=== PATIENT | male | born 1935 | race Caucasian/White ===

== ENCOUNTER 2018-01-10 01:41 | Observation (INO) ==
--- NOTE | 2018-01-10 02:06 | DR.CP ---
HPI Time Seen Time Seen by Provider: 01/10/18 02:03 PCP Primary Care Physician: KILEY HPI Comment HPI Comment: PATIENT GETS MUSCLE PSIN ALL THE TIME. PAIN TONIGHT DIFFERENT. PATIENT TOOK TWO 81MG ASA. PAIN 8/10. Complaint Chief Complaint Doctor Comments: CHEST PAIN TONIGHT ACCROSS CHEST ASSOCIATED WITH SOB. PAIN SIDES TIMES 2 WEEKS THAT IS ALSO WORSE. NO FEVER OR URI SYMPTOMS. Chief Complaint:: PATIENT STATED HE HAS BEEN HAVING BILATERAL SIDE PAIN X2 WEEKS BUT STARTED HAVING CHEST PAIN TONIGHT WITH SHORTNESS OF BREATH. Reviewed Nurses Notes Review: Yes Source History Provided: Patient Mode of Arrival Mode of Arrival: Ambulatory Timing Onset of Chief Complaint: 01/07/18 Came on: Suddenly Duration Duration: Constant Duration: Hours Location Location of Chest Pain: Right, Left and Chest Chest Pain Radiation Location: Back Context Onset: At rest and With light exertion Cardiac Risk Factors: Diabetes PE Risk Factors: None History of: Aspirin in last 24 hours Prehospital Care: ASA Quality Quality: Pressure like and Heavy Severity Severity: Moderate Modifying Factors Worsens: Nothing Associated Signs and Symptoms Associated Signs and Symptoms: Shortness of Breath PMH PMH Past Medical History: Yes Past Medical History: Diabetes, Dyslipidemia and Hypertension Past Medical History Comment: BLADDER CA Past Surgical History: Yes Surgical History: Cholecystectomy and Ortho Surgery Family History History of Family Medical Conditions: Yes Family Medical History: Diabetes Mellitus and Hypertension Social History Does patient currently use any type of tobacco product: No Have you used tobacco products in the last 12 months: No Type of Tobacco Use: None Does any household member use tobacco: No Alcohol Use: None Do you use any recreational Drugs:: No Lives Where: Home infectious screening In the last 2 months have you had wt loss of >10#?: NO Have you had fever, night sweats or hemotysis?: No Have you traveled outside the country in the last 6 months?: No Isolation: Standard ROS Review of Systems ENTM: No Symptoms Reported Respiratoy: Short of Breath Cardiovascular: Chest Pain Gastrointestinal/Abdominal: No Symptoms Reported Genitourinary: No Symptoms Reported Neurological: Weakness Musculoskeletal: No Symptoms Reported Integumentary: No Symptoms Reported Hematologic/Lymphatic: No Symptoms Reported Endocrine: No Symptoms Reported Psychiatric: No Symptoms Reported All Other Systems: Reviewed and Negative PE Vitals Vitals: Temperature 98.1 F Pulse Rate [Apical] 76 Pulse Rate 71 Respiratory Rate 23 Blood Pressure [Right Arm] 118/60 Blood Pressure 184/77 O2 Sat by Pulse Oximetry 95 General Limitations: No Limitations General Appearance: Alert and In No Apparent Distress Head Head Exam: Normal Inspection Eyes Eye exam: Normal Appearance, PERRL and EOMI; negative Scleral Icterus and Conjunctival Injection ENT ENT Exam: Normal Exam, Normal Oropharynx, Normal External Ear Exam, Mucous Membranes Moist and TM's Normal Bilaterally Chest Chest Inspection: Normal Inspection and Symmetric Chest Wall Rise Respiratory Respiratory Exam: Normal Lung Sounds Bilat Respiratory Exam: Bilateral: Rhonchi and Lower: Rhonchi Cardiovascular Cardiovascular Exam: Regular Rate, Normal Rhythm and Normal Heart Sounds Pulse: Normal, Radial and Femoral Edema: Normal Abdominal Exam Abdominal Exam: Normal Inspection, Normal Bowel Sounds and Soft; negative Tenderness Extremities Extremities Exam: Normal Inspection and Normal Capillary Refill Back Back Exam: Paraspinal Tenderness Neurologic Neurological Exam: Alert, Oriented X3 and CN II-XII Intact; negative Motor Sensory Deficit Psychiatric Psychiatric Exam: Normal Affect and Normal Mood Skin Skin Exam: Warm, Dry, Intact and Normal Color MDM Additional Information Additional Information Obtained From: Family Differential Diagnosis Differential Diagnosis: Angina, CHF, Gastritis, Myocardial Infarction, Pericarditis, Pleuritis, Pneumonia and Pneumothorax COURSE Treatment Treatment: SEE ORDERS. Education/Counseling Education/Counseling: Patient, Family and Education Educated On: Diagnosis and Needs for Follow Up ROR Labs Reviewed Laboratory Results Reviewed?: Yes Result Diagrams: 01/10/18 02:05 01/10/18 02:05 Laboratory: WBC 8.1 X10^3/uL (3.6-10.0) 01/10/18 02:05 RBC 4.30 X10^6/uL (4.7-6.0) L 01/10/18 02:05 Hgb 14.4 g/dL (13.5-18.0) 01/10/18 02:05 Hct 41.8 % (42.0-54.0) L 01/10/18 02:05 MCV 97.2 fL (80.0-100.0) 01/10/18 02:05 MCH 33.5 pg (27.0-34.0) 01/10/18 02:05 MCHC 34.5 g/dL (33.0-35.0) 01/10/18 02:05 RDW 11.4 % (11.6-16.5) L 01/10/18 02:05 Plt Count 129 X10^3/uL (150.0-450.0) L 01/10/18 02:05 MPV 8.7 fL (7.4-11.0) 01/10/18 02:05 Neut % (Auto) 57.1 % (42.0-75.0) 01/10/18 02:05 Lymph % (Auto) 25.6 % (21.0-51.0) 01/10/18 02:05 [place] % (Auto) 9.4 % (0.0-13.0) 01/10/18 02:05 Eos % (Auto) 7.3 % (0.9-2.9) H 01/10/18 02:05 Baso % (Auto) 0.6 % (0.2-1.0) 01/10/18 02:05 Neut # (Auto) 4.6 x10^3/uL (2.2-4.8) 01/10/18 02:05 Lymph # (Auto) 2.1 X10^3/uL (1.3-2.9) 01/10/18 02:05 [place] # (Auto) 0.8 x10^3/uL (0.3-0.8) 01/10/18 02:05 Eos # (Auto) 0.6 x10^3/uL (0.0-0.2) H 01/10/18 02:05 Baso # (Auto) 0.0 X10^3/uL (0.0-0.1) 01/10/18 02:05 Absolute Nucleated RBC 0.0 /100WBC 01/10/18 02:05 INR Target Range - 01/10/18 02:05 INR 1.17 (0.8-1.3) 01/10/18 02:05 APTT 36.2 SECONDS (22.9-36.5) 01/10/18 02:05 PTT Comment - 01/10/18 02:05 Sodium 142 mmol/L (136-145) 01/10/18 02:05 Corrected Sodium 145 mmol/L (136-145) 01/10/18 02:05 Potassium 4.3 mmol/L (3.5-5.1) 01/10/18 02:05 Chloride 106 mmol/L (98-107) 01/10/18 02:05 Carbon Dioxide 30.4 mmol/L (21-32) 01/10/18 02:05 BUN 28 mg/dL (7-18) H 01/10/18 02:05 Creatinine 1.27 mg/dL (0.70-1.30) 01/10/18 02:05 Est GFR (MDRD) Af Amer > 60 (>60) 01/10/18 02:05 Est GFR (MDRD) Non-Af 58 (>60) L 01/10/18 02:05 Glucose 211 mg/dL (65-99) H 01/10/18 02:05 Calcium 8.5 mg/dL (8.5-10.1) 01/10/18 02:05 Corrected Calcium 9.1 mg/dL (8.5-10.1) 01/10/18 02:05 Magnesium 1.7 mg/dL (1.7-2.9) 01/10/18 02:05 Total Bilirubin 0.20 mg/dL (0.2-1.0) 01/10/18 02:05 AST 38 Units/L (15-37) H 01/10/18 02:05 ALT 60 Units/L (12-78) 01/10/18 02:05 Alkaline Phosphatase 143 Units/L (46-116) H 01/10/18 02:05 Creatine Kinase 50 Units/L (39-308) 01/10/18 02:05 CK-MB (CK-2) < 1.0 ng/mL (0-4.0) 01/10/18 02:05 CK/CKMB % Calc 2.0 % (<4) 01/10/18 02:05 Troponin I < 0.02 ng/mL (0-1.5) 01/10/18 02:05 Total Protein 6.7 g/dL (6.4-8.2) 01/10/18 02:05 Albumin 3.3 g/dL (3.4-5.0) L 01/10/18 02:05 Globulin 3.4 g/dL (2.5-4.5) 01/10/18 02:05 Albumin/Globulin Ratio 1.0 Ratio (1.1-2.1) L 01/10/18 02:05 H. pylori IgG Antibody Negative (NEGATIVE) 01/10/18 02:05 XRAY XRAY Interpreted by: Radiologist XRAY Findings: REPORT DISCUSS WITH PATIENT. EKG Rate: 58 Rhythm: SB Block: LBBB Hypertrophy: None ST: Normal Diagnosis Discharge Problem: Chest pain, rule out acute myocardial infarction
[2018-01-10 02:21] LABS: BASOPHILS % (AUTO) 0.6 % (0.2-1.0); EOSINOPHILS # (AUTO) 0.6 x10^3/uL (0.0-0.2); EOSINOPHILS % (AUTO) 7.3 % (0.9-2.9); HEMATOCRIT 41.8 % (42.0-54.0); HEMOGLOBIN 14.4 g/dL (13.5-18.0); LYMPHOCYTES # (AUTO) 2.1 X10^3/uL (1.3-2.9); LYMPHOCYTES % (AUTO) 25.6 % (21.0-51.0); MEAN CORPUSCULAR HEMOGLOBIN 33.5 pg (27.0-34.0); MEAN CORPUSCULAR HGB CONC 34.5 g/dL (33.0-35.0); MEAN CORPUSCULAR VOLUME 97.2 fL (80.0-100.0); MEAN PLATELET VOLUME 8.7 fL (7.4-11.0); MONOCYTES # (AUTO) 0.8 x10^3/uL (0.3-0.8); MONOCYTES % (AUTO) 9.4 % (0.0-13.0); NEUTROPHILS # (AUTO) 4.6 x10^3/uL (2.2-4.8); NEUTROPHILS % (AUTO) 57.1 % (42.0-75.0); PLATELET COUNT 129 X10^3/uL (150.0-450.0); RED CELL DISTRIBUTION WIDTH 11.4 % (11.6-16.5); WHITE BLOOD COUNT 8.1 X10^3/uL (3.6-10.0)
[2018-01-10] MEDS ORDERED: ROCEPHIN VIAL 250 MG ONE (02:21)
[2018-01-10] MEDS ORDERED: ZITHROMAX TAB 250 MG PO ONE (02:21)
[2018-01-10] MEDS ORDERED: ASPIRIN 81 MG CHEWTAB ONE (02:26)
[2018-01-10] MEDS: NITROSTAT SL PRN ×2 (02:27→02:55)
[2018-01-10] MEDS ORDERED: NITROSTAT SL ONE (02:27)
[2018-01-10] MEDS ORDERED: ASPIRIN 81 MG CHEWTAB PO ONE (02:27)
[2018-01-10 02:33] LABS: BLOOD UREA NITROGEN 28 mg/dL (7-18); CALCIUM 8.5 mg/dL (8.5-10.1); CARBON DIOXIDE 30.4 mmol/L (21-32); CHLORIDE 106 mmol/L (98-107); COR NA(FOR HYPERGLY) 145 mmol/L (136-145); CREATININE 1.27 mg/dL (0.70-1.30); SODIUM 142 mmol/L (136-145); TROPONIN I < 0.02 ng/mL (0-1.5); eGFR NON BLACK RACES 58 (>60)
[2018-01-10 02:37] LABS: ALANINE AMINOTRANSFERASE 60 Units/L (12-78); ALBUMIN 3.3 g/dL (3.4-5.0); ALKALINE PHOSPHATASE 143 Units/L (46-116); ASPARTATE AMINO TRANSFERASE 38 Units/L (15-37); COR CA(FOR HYPOALB) 9.1 mg/dL (8.5-10.1); CREATINE KINASE 50 Units/L (39-308); CREATINE KINASE MB < 1.0 ng/mL (0-4.0); MAGNESIUM 1.7 mg/dL (1.7-2.9); TOTAL PROTEIN 6.7 g/dL (6.4-8.2)
--- NOTE | 2018-01-10 02:44 | RAD ---
Chest AP portable Indication: Chest pain Findings: There is no pneumothorax or effusion. There is no consolidation. Heart size is normal. Impression: No acute chest process Reported By:
[2018-01-10] MEDS ORDERED: MORPHINE SULFATE INJ 4 MG IVP ONE (03:02)
[2018-01-10] MEDS ORDERED: ZOFRAN INJ 4 MG VIAL IVP ONE (03:02)
[2018-01-10] MEDS ORDERED: ZOFRAN INJ 4 MG VIAL ONE (03:05)
[2018-01-10] MEDS ORDERED: MORPHINE SULFATE INJ 2 MG INJ ONE (03:05)
[2018-01-10] MEDS ORDERED: MORPHINE SULFATE INJ 2 MG INJ IVP ONE ×2 (03:11→04:18)
[2018-01-10] MEDS ORDERED: MORPHINE SULFATE INJ 2 MG INJ IVP PRN (03:59)
[2018-01-10] MEDS ORDERED: ZOFRAN INJ 4 MG VIAL IVP PRN (04:12)
[2018-01-10] MEDS ORDERED: PEPCID 20 MG IV PREMIX* 20 MG/50 ML BAG IV ONE ×2 (04:20→04:24)
[2018-01-10] MEDS ORDERED: NS 1000 ML 1,000 ML IV SCH (05:00)
[2018-01-10] MEDS ORDERED: ASPIRIN 81 MG CHEWTAB PO SCH (05:29)
[2018-01-10 05:42] VITALS: BMI 28.0
[2018-01-10] MEDS ORDERED: INSULIN LISPRO 8 UNIT subcut SCH (06:30)
[2018-01-10 08:51] LABS: CHOL/HDL RATIO 2.5 (0.0-5.0)
[2018-01-10] MEDS ORDERED: PRAVASTATIN PO SCH (09:00)
[2018-01-10] MEDS ORDERED: MYSOLINE PO SCH (09:00)
[2018-01-10] MEDS ORDERED: ZOLOFT PO SCH (09:00)
[2018-01-10] MEDS ORDERED: HYZAAR 50/12.5 MG PO SCH (09:00)
[2018-01-10] MEDS ORDERED: XARELTO PO SCH (09:00)
[2018-01-10] MEDS ORDERED: PATIENT'S HOME MEDICATION (Bupropion Hcl [Bupropion Hcl] 1 TAB) PO SCH (09:00)
[2018-01-10] MEDS: ASPIRIN PO SCH ×2 (09:14→09:19)
[2018-01-10 09:16] LABS: CKMB % 2.2 % (<4); CREATINE KINASE 51 Units/L (39-308); CREATINE KINASE MB 1.1 ng/mL (0-4.0); TROPONIN I < 0.02 ng/mL (0-1.5)
[2018-01-10] MEDS ORDERED: HumaLOG SC SCH (11:30)
--- NOTE | 2018-01-10 11:51 | VAS ---
HISTORY: Concern for carotid artery stenosis. Chest pain. Technique: Multiple hoang scale and color flow Doppler images of the right and left carotid arterial s ystem were obtained. The vertebral arterial system was evaluated as well. Findings: Nonocclusive color flow Doppler is seen throughout the right and left carotid arterial system. No hem odynamically significant carotid arterial stenosis is seen based on velocity criteria. There is mild bilateral carotid intimal thickening but without evidence for high-grade stenosis (>70%) or occlusion of the carotid arteries. The right and left vertebral artery demonstrate antegrade flow. IMPRESSION: Mild bilateral carotid intimal thickening but without evidence for high-grade stenosis or occlusion o f the carotid arteries, based on Doppler velocity criteria. Appropriate, antegrade, vertebral arterial flow. Peak right ICA velocity: 84 centimeter/seconds. Peak right CCA velocity: 72 centimeter/seconds. Peak left ICA velocity: 72 centimeter/seconds. Peak left CCA velocity: 75 centimeter/seconds. Right ICA to CCA ratio: 1.62. Left ICA to CCA ratio: 1.24. Reported By:
[2018-01-10 12:20] VITALS: BP 153/78
[2018-01-10 14:20] LABS: CKMB % 2.8 % (<4); CREATINE KINASE 50 Units/L (39-308); CREATINE KINASE MB 1.4 ng/mL (0-4.0); TROPONIN I < 0.02 ng/mL (0-1.5)
[2018-01-10] MEDS ORDERED: CRESTOR TAB 10 MG PO SCH (21:00)
[2018-01-10] MEDS ORDERED: LANTUS SC SCH (21:00)
[2018-01-10] MEDS ORDERED: INSULIN GLARGINE 15 UNIT subcut SCH (21:00)
--- NOTE | 2018-01-16 09:32 | DR.CARTERS ---
Short Stay Summary - Admission Date Date of Admission: 01/10/18 - Discharge Date Discharge Date: 01/10/18 - Admission Diagnoses (1) Chest pain, rule out acute myocardial infarction Status: Acute - Hospital Course Hospital Course: is a 82 year old patient of ours who presented to the emergency room with reports of chest pain that started two weeks ago and became worse today. Pain was described as a muscle pain across chest with associated shortness of breath and nausea. Patient stated that he took two baby Aspirin prior to arrival with continued pain rated as an 8/10. Medical History includes: Hyperlipidemia, Hypertension, Emphysema, Gerd, Bladder CA, Arthritis, DM type II. On arrival, vitals were 98.1, 71, 18, 96% RA, 184/77. Labs were obtained. Abnormal lab values included the following: Abnormal Labs: RBC 4.30, Hct 41.8, RDW 11.4, Plt Count 129, BUN 28, GFR non 58, Glucose 211, AST 38, Alk Phos 143, Albumin 3.3, A/G Ratio 1.0. Chest X-Ray revealed: No acute chest process. EKG revealed: Sinus Rhythm. Rate=58. He was given Aspirin 162mg po x1, Zofran 4mg IV x1, Morphine 2mg IV x2, Pepcid 20mg IV x1, Nitrostat 0.4mg SL Q5min x 2 doses in the ER with only reports of mild improvement in pain. Patient admitted to the hospital as observation for further evalutation and treatment. Patient placed on continuous court monitor and planned to obtain serial cardiac enzymes and EKG's. After admission, cardiac enzymes and EKGs remained normal. On morning rounds, he continues with complaints of shortness of breath and chest pain at times, but did not currently have symptoms. His vitals this morning were 97.8-58-18-94% -143/67. We obtained a carotid Doppler which revealed: Nonocclusive color flow Doppler is seen throughout the right and left carotid arterial system. No hemodynamically significant carotid arterial stenosis is seen based on velocity criteria. There is mild bilateral carotid intimal thickening but without evidence for high-grade stenosis (>70%) or occlusion of the carotid arteries. The right and left vertebral artery demonstrate antegrade flow. An echocardiogram was also obtained and revealed an ejection fraction of 58%, e/a reversal, mild LVH, RSVP 15mmHG. We planned for discharge. Instructions for medications and follow-up were discussed with patient and family. They verbalized understanding. Patient was discharged home in stable condition with new prescriptions for rosuvastatin 10mg po HS. He was instructed to discontinue the pravastatin that he was taking. He has instructions to follow up in the office on 01/17/18 at 10:30am. - Discharge Medications Discharge Medications: Home Medication List aspirin 81 mg PO QDAY 01/10/18 [History] bupropion HCl 1 tab PO DAILY 01/10/18 [History] insulin glargine 15 units SUBCUT HS 01/10/18 [History] insulin lispro 8 units SUBCUT AC 01/10/18 [History] losartan-hydrochlorothiazide 1 tab PO DAILY 01/10/18 [History] primidone 1 tab PO DAILY 01/10/18 [History] rivaroxaban 1 tab PO DAILY 01/10/18 [History] rosuvastatin [Crestor] 10 mg PO HS #30 tab 01/10/18 [Rx] sertraline 1 tab PO DAILY 01/10/18 [History] Prescriptions: rosuvastatin [Crestor] Jr Fenton - Discharge Plan Disposition: 01 HOME, SELF-CARE Condition: Stable Prescriptions: rosuvastatin [Crestor] 10 mg PO HS #30 tab - Follow up/Referrals Follow up/Referrals: Jr Fenton [Primary Care Provider] - 01/17/18 10:30 am - Instructions Instructions: Chest Wall Pain, [id number], Nonspecific Chest Pain, Easy-to- Read, Aspirin and Your Heart, Hypertension, [id number], Type 2 Diabetes Mellitus, Diagnosis, Adult, [id number] Additional Instructions: DIET TOLERATED. ACTIVITY TOLERATED. Forms: Patient Portal
== END 2018-01-10 15:05 | disposition home or self-care (01) ==
LOC: MED/SURG 01:43 → ER 01:43 → MED/SURG 05:18
PROVIDERS: ADMIT Internal Medicine; ATTEND Internal Medicine
DX: R07.89 Other chest pain; R94.31 Abnormal electrocardiogram [ECG] [EKG]; E78.2 Mixed hyperlipidemia; M54.89 Other dorsalgia; R94.5 Abnormal results of liver function studies; R06.02 Shortness of breath; I10 Essential (primary) hypertension; E11.65 Type 2 diabetes mellitus with hyperglycemia
CPT/HCPCS: 36415; 71010; 71045; 80053; 80061; 82550; 82553; 83735; 84484; 85025; 85610; 85730; 86677; 93005; 93041; 93306; 93880; 94760; 96365; 96374; 96375; 99284; A4222; Q0144; S0028; G0378; J0696; J2270; J2405; J7030

== ENCOUNTER 2018-01-20 10:08 | Observation (INO) ==
--- NOTE | 2018-01-20 11:02 | DR.CP ---
HPI Time Seen Time Seen by Provider: 01/20/18 10:50 PCP Primary Care Physician: KILEY HPI Comment HPI Comment: SYMPTOMS WORSE TODAY. Complaint Chief Complaint Doctor Comments: EPIGASTRIC PAIN WITH NAUSEA TIMES 3 TO 4 DAYS. Chief Complaint:: PT C/O CHEST PAIN X 3-4 DAYS NAUSEA X 3 DAYS WITH NO VOMITTING Reviewed Nurses Notes Review: Yes Source History Provided: Patient Mode of Arrival Mode of Arrival: Ambulatory Timing Onset of Chief Complaint: 01/17/18 Came on: Suddenly Duration Duration: Constant Duration: Days Context Onset: At rest and Other (PAIN EPIGASTRIC AREA.) Cardiac Risk Factors: HTN PE Risk Factors: None History of: None Prehospital Care: Other (TOOK ANTACIDS.) Quality Quality: Pressure like Severity Severity: Moderate Modifying Factors Worsens: Nothing Impoves: Nothing Associated Signs and Symptoms Associated Signs and Symptoms: Shortness of Breath, Abdominal Pain and Nausea/ Vomiting PMH PMH Past Medical History: Yes Past Medical History: Diabetes, Dyslipidemia and Hypertension Past Surgical History: Yes Surgical History: Cholecystectomy, Ortho Surgery and Tonsillectomy Family History History of Family Medical Conditions: Yes Family Medical History: Diabetes Mellitus, Cancer and Hypertension Social History Does patient currently use any type of tobacco product: No Have you used tobacco products in the last 12 months: No Type of Tobacco Use: None Does any household member use tobacco: No Alcohol Use: None Do you use any recreational Drugs:: No Lives With: Spouse Lives Where: Home infectious screening In the last 2 months have you had wt loss of >10#?: NO Have you had fever, night sweats or hemotysis?: No Have you traveled outside the country in the last 6 months?: No Isolation: Standard ROS Review of Systems Constitutional: No Symptoms Reported Eyes: No Symptoms Reported ENTM: No Symptoms Reported Respiratoy: Short of Breath Cardiovascular: No Symptoms Reported Gastrointestinal/Abdominal: Abdominal Pain and Nausea Genitourinary: No Symptoms Reported Neurological: No Symptoms Reported Musculoskeletal: No Symptoms Reported Integumentary: No Symptoms Reported Hematologic/Lymphatic: No Symptoms Reported Endocrine: No Symptoms Reported Psychiatric: No Symptoms Reported All Other Systems: Reviewed and Negative PE Vitals Vitals: Temperature 98.5 F Pulse Rate [Right Radial] 72 Pulse Rate 84 Respiratory Rate 18 Blood Pressure [Right Arm] 131/60 Blood Pressure 119/66 O2 Sat by Pulse Oximetry 96 General Limitations: No Limitations General Appearance: Alert and In No Apparent Distress Head Head Exam: Normal Inspection Eyes Eye exam: Normal Appearance ENT ENT Exam: Normal Oropharynx, Normal External Ear Exam, Mucous Membranes Moist and TM's Normal Bilaterally Chest Chest Inspection: Normal Inspection and Symmetric Chest Wall Rise Respiratory Respiratory Exam: Normal Lung Sounds Bilat Respiratory Exam: Bilateral: Rhonchi and Lower: Rhonchi Cardiovascular Cardiovascular Exam: Regular Rate, Normal Rhythm and Normal Heart Sounds Pulse: Normal, Radial and Femoral Edema: Normal Abdominal Exam Abdominal Exam: Normal Bowel Sounds, Soft and Tenderness Abdominal Tenderness: Epigastrium and Moderate Extremities Extremities Exam: Normal Inspection Back Back Exam: Normal Inspection Neurologic Neurological Exam: Alert, Oriented X3 and CN II-XII Intact; negative Motor Sensory Deficit Psychiatric Psychiatric Exam: Normal Affect and Normal Mood Skin Skin Exam: Warm, Dry, Intact and Normal Color MDM Differential Diagnosis Differential Diagnosis: Angina, Gastritis, Myocardial Infarction, Pericarditis, Pancreatitis and Pneumonia COURSE Treatment Treatment: SEE ORDERS. Consultation Consultation Comments: DISCUSS PATIENT WITH DR. DIETRICH. HE WILL ADMIT PATIENT. Education/Counseling Education/Counseling: Patient and Education Educated On: Diagnosis ROR Labs Reviewed Laboratory Results Reviewed?: Yes Result Diagrams: 01/21/18 05:10 01/21/18 05:10 Laboratory: WBC 7.1 X10^3/uL (3.6-10.0) 01/21/18 05:10 RBC 4.37 X10^6/uL (4.7-6.0) L 01/21/18 05:10 Hgb 14.4 g/dL (13.5-18.0) 01/21/18 05:10 Hct 42.0 % (42.0-54.0) 01/21/18 05:10 MCV 96.0 fL (80.0-100.0) 01/21/18 05:10 MCH 33.0 pg (27.0-34.0) 01/21/18 05:10 MCHC 34.4 g/dL (33.0-35.0) 01/21/18 05:10 RDW 11.6 % (11.6-16.5) 01/21/18 05:10 Plt Count 124 X10^3/uL (150.0-450.0) L 01/21/18 05:10 MPV 8.9 fL (7.4-11.0) 01/21/18 05:10 Neut % (Auto) 62.3 % (42.0-75.0) 01/21/18 05:10 Lymph % (Auto) 21.2 % (21.0-51.0) 01/21/18 05:10 [place] % (Auto) 9.3 % (0.0-13.0) 01/21/18 05:10 Eos % (Auto) 6.1 % (0.9-2.9) H 01/21/18 05:10 Baso % (Auto) 1.1 % (0.2-1.0) H 01/21/18 05:10 Neut # (Auto) 4.4 x10^3/uL (2.2-4.8) 01/21/18 05:10 Lymph # (Auto) 1.5 X10^3/uL (1.3-2.9) 01/21/18 05:10 [place] # (Auto) 0.7 x10^3/uL (0.3-0.8) 01/21/18 05:10 Eos # (Auto) 0.4 x10^3/uL (0.0-0.2) H 01/21/18 05:10 Baso # (Auto) 0.1 X10^3/uL (0.0-0.1) 01/21/18 05:10 Absolute Nucleated RBC 0.1 /100WBC 01/21/18 05:10 Sodium 143 mmol/L (136-145) 01/21/18 05:10 Corrected Sodium 144 mmol/L (136-145) 01/21/18 05:10 Potassium 5.8 mmol/L (3.5-5.1) H 01/21/18 05:10 Chloride 107 mmol/L (98-107) 01/21/18 05:10 Carbon Dioxide 37.7 mmol/L (21-32) H 01/21/18 05:10 BUN 23 mg/dL (7-18) H 01/21/18 05:10 Creatinine 1.35 mg/dL (0.70-1.30) H 01/21/18 05:10 Est GFR (MDRD) Af Amer > 60 (>60) 01/21/18 05:10 Est GFR (MDRD) Non-Af 54 (>60) L 01/21/18 05:10 Glucose 154 mg/dL (65-99) H 01/21/18 05:10 POC Glucose (mg/dL) 257 mg/dL (65-99) H 01/21/18 16:30 Calcium 8.5 mg/dL (8.5-10.1) 01/21/18 05:10 Corrected Calcium 9.2 mg/dL (8.5-10.1) 01/21/18 05:10 Magnesium 2.3 mg/dL (1.7-2.9) 01/21/18 05:10 Total Bilirubin 0.40 mg/dL (0.2-1.0) 01/21/18 05:10 AST 34 Units/L (15-37) 01/21/18 05:10 ALT 66 Units/L (12-78) 01/21/18 05:10 Alkaline Phosphatase 164 Units/L (46-116) H 01/21/18 05:10 Creatine Kinase 41 Units/L (39-308) 01/21/18 05:10 CK-MB (CK-2) < 1.0 ng/mL (0-4.0) 01/21/18 05:10 CK/CKMB % Calc 2.4 % (<4) 01/21/18 05:10 Troponin I < 0.02 ng/mL (0-1.5) 01/21/18 05:10 Total Protein 6.4 g/dL (6.4-8.2) 01/21/18 05:10 Albumin 3.1 g/dL (3.4-5.0) L 01/21/18 05:10 Globulin 3.3 g/dL (2.5-4.5) 01/21/18 05:10 Albumin/Globulin Ratio 0.9 Ratio (1.1-2.1) L 01/21/18 05:10 Triglycerides 71 mg/dL (0-150) 01/21/18 05:10 Cholesterol 125 mg/dL (0-200) 01/21/18 05:10 LDL Cholesterol, Calc 60 mg/dL (0-100) 01/21/18 05:10 HDL Cholesterol 51 mg/dL (40-60) 01/21/18 05:10 Cholesterol/HDL Ratio 2.5 (0.0-5.0) 01/21/18 05:10 Amylase 45 Units/L (25-115) 01/20/18 11:10 Lipase 71 Units/L (73-393) L 01/20/18 11:10 Specimen Type Random urine 01/20/18 14:15 Urine Color Yellow (YELLOW) 01/20/18 14:15 Urine Appearance Clear (CLEAR) 01/20/18 14:15 Urine pH 6.0 (5.0 - 8.0) 01/20/18 14:15 Ur Specific [place] 1.015 (1.000-1.030) 01/20/18 14:15 Urine Protein 3+ (NEGATIVE) 01/20/18 14:15 Urine Glucose (UA) Negative (NEGATIVE) 01/20/18 14:15 Urine Ketones Negative (NEGATIVE) 01/20/18 14:15 Urine Occult Blood 2+ (NEGATIVE) 01/20/18 14:15 Urine Nitrite Negative (NEGATIVE) 01/20/18 14:15 Urine Bilirubin Negative (NEGATIVE) 01/20/18 14:15 Urine Urobilinogen Normal (NORMAL) 01/20/18 14:15 Ur Leukocyte Esterase 1+ (NEGATIVE) 01/20/18 14:15 Urine RBC 0-2 /HPF (NONE SEEN) 01/20/18 14:15 Urine WBC 0-2 /HPF (NONE SEEN) 01/20/18 14:15 Ur Squamous Epith Cells Rare /HPF (NEGATIVE) 01/20/18 14:15 Urine Bacteria Negative /HPF (NEGATIVE) 01/20/18 14:15 Urine Mucus Rare /HPF (NEGATIVE) 01/20/18 14:15 Ur Culture Indicated? No/not indicated 01/20/18 14:15 H. pylori IgG Antibody Negative (NEGATIVE) 01/20/18 11:10 XRAY XRAY Interpreted by: Radiologist XRAY Findings: REPORT DISCUSS WITH PATIENT. EKG Rate: 70 Block: None Hypertrophy: None ST: Nonsp Diagnosis Discharge Problem: Epigastric abdominal pain, Ruled out for myocardial infarction Instructions Instructions: Nonspecific Chest Pain Nonspecific Chest Pain, [id number] Pain Without a Known Cause Forms: Patient Portal
[2018-01-20] MEDS ORDERED: PEPCID 20 MG IV PREMIX* 20 MG/50 ML BAG IV ONE ×2 (11:07→11:08)
[2018-01-20] MEDS ORDERED: ZOFRAN INJ 4 MG VIAL IVP ONE (11:07)
[2018-01-20] MEDS ORDERED: ZOFRAN INJ 4 MG VIAL ONE (11:08)
[2018-01-20 11:26] LABS: BASOPHILS # (AUTO) 0.1 X10^3/uL (0.0-0.1); BASOPHILS % (AUTO) 0.8 % (0.2-1.0); EOSINOPHILS # (AUTO) 0.3 x10^3/uL (0.0-0.2); EOSINOPHILS % (AUTO) 2.9 % (0.9-2.9); HEMATOCRIT 46.3 % (42.0-54.0); HEMOGLOBIN 15.9 g/dL (13.5-18.0); LYMPHOCYTES # (AUTO) 1.2 X10^3/uL (1.3-2.9); LYMPHOCYTES % (AUTO) 13.5 % (21.0-51.0); MEAN CORPUSCULAR HEMOGLOBIN 33.2 pg (27.0-34.0); MEAN CORPUSCULAR HGB CONC 34.4 g/dL (33.0-35.0); MEAN CORPUSCULAR VOLUME 96.6 fL (80.0-100.0); MEAN PLATELET VOLUME 8.7 fL (7.4-11.0); MONOCYTES # (AUTO) 0.6 x10^3/uL (0.3-0.8); MONOCYTES % (AUTO) 7.1 % (0.0-13.0); NEUTROPHILS # (AUTO) 6.5 x10^3/uL (2.2-4.8); NEUTROPHILS % (AUTO) 75.7 % (42.0-75.0); PLATELET COUNT 126 X10^3/uL (150.0-450.0); RED BLOOD COUNT 4.79 X10^6/uL (4.7-6.0); RED CELL DISTRIBUTION WIDTH 11.7 % (11.6-16.5); WHITE BLOOD COUNT 8.6 X10^3/uL (3.6-10.0)
[2018-01-20 11:37] LABS: BLOOD UREA NITROGEN 23 mg/dL (7-18); CALCIUM 9.1 mg/dL (8.5-10.1); CARBON DIOXIDE 32.6 mmol/L (21-32); CHLORIDE 103 mmol/L (98-107); COR NA(FOR HYPERGLY) 142 mmol/L (136-145); CREATININE 1.42 mg/dL (0.70-1.30); SODIUM 140 mmol/L (136-145); TROPONIN I < 0.02 ng/mL (0-1.5); eGFR NON BLACK RACES 51 (>60)
[2018-01-20 11:41] LABS: ALANINE AMINOTRANSFERASE 79 Units/L (12-78); ALBUMIN 3.7 g/dL (3.4-5.0); ALKALINE PHOSPHATASE 173 Units/L (46-116); AMYLASE 45 Units/L (25-115); ASPARTATE AMINO TRANSFERASE 42 Units/L (15-37); CKMB % 2.4 % (<4); CREATINE KINASE 42 Units/L (39-308); CREATINE KINASE MB < 1.0 ng/mL (0-4.0); LIPASE 71 Units/L (73-393); TOTAL PROTEIN 7.3 g/dL (6.4-8.2)
--- NOTE | 2018-01-20 12:10 | CT ---
HISTORY: Abdominal pain all over with nausea. Prior history of diabetes, dyslipidemia and hypertensio n. Prior surgical history of cholecystectomy and orthopedic surgery. Study: CT abdomen and pelvis without IV or oral contrast Comparison: No priors Technique: Multiple axial images of the abdomen and pelvis were obtained from the lung bases to the pubic symphy sis without the administration of IV or oral contrast. Coronal and sagittal images are also reviewe d. Dose reduction techniques utilized automatic exposure control. Findings: The visualized portions of the lung bases are unremarkable. The liver, spleen, pancreas, and adrenal glands are unremarkable in their CT appearance. Gallbladder is surgically absent. There are simple c ysts present involving both kidneys. The largest cyst is in the upper pole on the right measuring 2.3 cm. Left kidney is small with thin cortex. There are cortical calcifications present involving the l eft kidney. No evidence of pneumothorax is seen.. No significant mesenteric lymphadenopathy or stran ding can be observed. No free fluid or free air is seen within the abdomen. No bowel wall thickenin g or bowel dilatation is present. Severe but uncomplicated appearing descending and sigmoid colon di verticulosis is seen. No diverticulitis, abscess or fluid is seen.. The urinary bladder is grossly un remarkable. There is artifact present from patient's right hip arthroplasty. IMPRESSION: Small left kidney with multiple cortical calcifications present. No evidence of hydronephrosis is see n. There are simple cysts present involving both kidneys. Severe but uncomplicated appearing descending and sigmoid colon diverticulosis. No diverticulitis, ab scess or fluid is seen. Surgically absent gallbladder. Reported By:
[2018-01-20] MEDS: ASPIRIN 81 MG CHEWTAB PO SCH (12:42)
[2018-01-20 14:25] LABS: BILIRUBIN,URINE NEGATIVE (NEGATIVE); BLOOD/HEMOGLOBIN,URINE 2+ (NEGATIVE); GLUCOSE, URINE NEGATIVE (NEGATIVE); KETONES,URINE NEGATIVE (NEGATIVE); LEUKOCYTE ESTERASE ,URINE 1+ (NEGATIVE); NITRITES,URINE NEGATIVE (NEGATIVE); PROTEIN,URINE 3+ (NEGATIVE); UROBILINOGEN,URINE NORMAL (NORMAL)
[2018-01-20 14:48] LABS: APPEARANCE,URINE CLEAR (CLEAR); BACTERIA,URINE NEGATIVE /HPF (NEGATIVE); COLOR,URINE YELLOW (YELLOW); MUCUS,URINE RARE /HPF (NEGATIVE); RBC,URINE 0-2 /HPF (NONE SEEN); SQUAMOUS EPITHELIAL CELL,UR RARE /HPF (NEGATIVE)
[2018-01-20] MEDS ORDERED: HumuLIN R SUBCUT PRN (15:52)
[2018-01-20] MEDS ORDERED: ASPIRIN 81 MG CHEWTAB PO SCH ×2 (16:00→17:00)
[2018-01-20] MEDS: NS 1000 ML 1,000 ML IV SCH (16:06)
[2018-01-20] MEDS ORDERED: WELLBUTRIN IR (PLAIN) PO SCH (17:00)
[2018-01-20 17:16] VITALS: BMI 28.0
[2018-01-20] MEDS ORDERED: ZOFRAN INJ 4 MG VIAL IVP PRN (17:16)
[2018-01-20] MEDS ORDERED: TYLENOL 325 MG TAB PO PRN (17:25)
[2018-01-20] MEDS ORDERED: NORCO 5/325 MG TAB PO PRN (17:25)
[2018-01-20] MEDS ORDERED: ULTRAM PO PRN (17:25)
[2018-01-20] MEDS ORDERED: MILK OF MAGNESIA PO SCH ×2 (17:32→21:00)
[2018-01-20] MEDS ORDERED: SNACK - Diabetic Appropriate PO SCH (20:00)
[2018-01-20] MEDS: COLACE CAP 100 MG PO SCH (20:55)
[2018-01-20] MEDS: MILK OF MAGNESIA PO SCH (20:55)
[2018-01-20] MEDS ORDERED: MIRALAX POWDER (1 DOSE 17 G) PO SCH (21:00)
[2018-01-20] MEDS ORDERED: CRESTOR TAB 10 MG PO SCH (21:00)
[2018-01-21] MEDS: NS 1000 ML 1,000 ML IV SCH ×2 (06:04→08:51)
[2018-01-21 06:15] LABS: BASOPHILS # (AUTO) 0.1 X10^3/uL (0.0-0.1); BASOPHILS % (AUTO) 1.1 % (0.2-1.0); EOSINOPHILS # (AUTO) 0.4 x10^3/uL (0.0-0.2); EOSINOPHILS % (AUTO) 6.1 % (0.9-2.9); HEMOGLOBIN 14.4 g/dL (13.5-18.0); LYMPHOCYTES # (AUTO) 1.5 X10^3/uL (1.3-2.9); LYMPHOCYTES % (AUTO) 21.2 % (21.0-51.0); MEAN CORPUSCULAR HGB CONC 34.4 g/dL (33.0-35.0); MEAN PLATELET VOLUME 8.9 fL (7.4-11.0); MONOCYTES # (AUTO) 0.7 x10^3/uL (0.3-0.8); MONOCYTES % (AUTO) 9.3 % (0.0-13.0); NEUTROPHILS # (AUTO) 4.4 x10^3/uL (2.2-4.8); NEUTROPHILS % (AUTO) 62.3 % (42.0-75.0); PLATELET COUNT 124 X10^3/uL (150.0-450.0); RED BLOOD COUNT 4.37 X10^6/uL (4.7-6.0); RED CELL DISTRIBUTION WIDTH 11.6 % (11.6-16.5); WHITE BLOOD COUNT 7.1 X10^3/uL (3.6-10.0)
[2018-01-21 06:27] LABS: ALANINE AMINOTRANSFERASE 66 Units/L (12-78); ALBUMIN 3.1 g/dL (3.4-5.0); ALKALINE PHOSPHATASE 164 Units/L (46-116); ASPARTATE AMINO TRANSFERASE 34 Units/L (15-37); BLOOD UREA NITROGEN 23 mg/dL (7-18); CALCIUM 8.5 mg/dL (8.5-10.1); CARBON DIOXIDE 37.7 mmol/L (21-32); CHLORIDE 107 mmol/L (98-107); CHOL/HDL RATIO 2.5 (0.0-5.0); CHOLESTEROL 125 mg/dL (0-200); COR CA(FOR HYPOALB) 9.2 mg/dL (8.5-10.1); COR NA(FOR HYPERGLY) 144 mmol/L (136-145); CREATININE 1.35 mg/dL (0.70-1.30); HDL CHOLESTEROL 51 mg/dL (40-60); MAGNESIUM 2.3 mg/dL (1.7-2.9); SODIUM 143 mmol/L (136-145); TOTAL PROTEIN 6.4 g/dL (6.4-8.2); TRIGLYCERIDES 71 mg/dL (0-150); eGFR NON BLACK RACES 54 (>60)
[2018-01-21 06:44] LABS: CREATINE KINASE 41 Units/L (39-308); CREATINE KINASE MB < 1.0 ng/mL (0-4.0); TROPONIN I < 0.02 ng/mL (0-1.5)
[2018-01-21 07:08] LABS: CKMB % 2.4 % (<4)
[2018-01-21] MEDS: MILK OF MAGNESIA PO SCH (08:45)
[2018-01-21] MEDS: ZOLOFT PO SCH ×2 (08:46→08:47)
[2018-01-21] MEDS: ASPIRIN 81 MG CHEWTAB PO SCH (08:46)
[2018-01-21] MEDS: COLACE CAP 100 MG PO SCH (08:46)
[2018-01-21] MEDS ORDERED: XARELTO PO SCH (09:00)
[2018-01-21] MEDS ORDERED: PATIENT'S HOME MEDICATION PO SCH (09:00)
[2018-01-21] MEDS ORDERED: PATIENT'S HOME MEDICATION (Bupropion Hcl [Bupropion Hcl] 1 TAB) PO SCH (09:00)
[2018-01-21] MEDS ORDERED: MIRALAX POWDER (255 GRAMS BTL) PO SCH (09:00)
[2018-01-21] MEDS ORDERED: MYSOLINE PO SCH (09:00)
[2018-01-21] MEDS ORDERED: HYZAAR 50/12.5 MG PO SCH (09:00)
--- NOTE | 2018-01-21 10:57 | RAD ---
Examination: Portable AP chest history: Chest pain Comparison reference 01/10/2018 Findings: Continued normal heart size with clear lungs and pleural spaces. Impression: No significant change or acute chest findings. Reported By:
--- NOTE | 2018-01-21 12:09 | DR.H&P ---
H&P - History & Physical for Day of: H&P Date: 01/20/18 - Chief Complaint Chief Complaint: CHEST PAIN - History of Present Illness History of Present Illness: 82 WM ER ADMISSION AFTER PRESENTING WITH CO CHEST PAIN. PT LOCALIZES PAIN TO EPIGASTRIC AREA AND CO PAIN/PRESSURE INTO CHEST WITH INCREASE GAS. PT DENIES ANY KNOWN CARDIAC DISEASE. PT STATES HE WAS IN [facility] 1 WEEK AGO WITH CHEST PAIN AND HAD "NORMAL HEART CHECK UP". PT HAS PMH OF GERD, HTN, DVT ON XARELTO, OA. PT ADMITTED FOR R/O AMI, EVALUATION OF CP - Past Medical History Past Medical History: Arthritis, Diabetes, Dyslipidemia, Hypertension - Past Surgical History Surgical History: Cholecystectomy, Ortho Surgery, Tonsillectomy - Family History Family Medical History: Diabetes Mellitus, Cancer, Hypertension - Social History Does patient currently use any type of tobacco product: No Have you used tobacco products in the last 12 months: No Type of Tobacco Use: None Does any household member use tobacco: No Alcohol Use: None Drug Use: None - Medications Home Medications: No Known Drug Allergies Allergy (Verified 01/10/18 01:49) CONTINUE taking the following medications polyethylene glycol 3350 17 g/day PO DAILY 01/20/18 [History] rivaroxaban [Xarelto] 1 tab PO DAILY 01/20/18 [History] tramadol 1 tab PO DAILY PRN 01/20/18 [History] - Review of Systems Constitutional: No Symptoms Reported Eyes: No Symptoms Reported ENT: No Symptoms Reported Respiratory: SOB with Excertion Cardiovascular: Chest Pain. denies: Edema, Light Headedness Gastrointestinal: Abdominal Pain Genitourinary: No Symptoms Reported Musculoskeletal: Back Pain, Neck Pain Skin: No Symptoms Reported Neurological: No Symptoms Reported - Physical Exam Vital Signs: Temperature 98.9 F Pulse Rate [Right Radial] 66 Pulse Rate 84 Respiratory Rate 20 Blood Pressure [Right Arm] 147/63 Blood Pressure 119/66 O2 Sat by Pulse Oximetry 91 Oriented: Normal Eyes: Normal Ear: Normal Nose: Normal Throat: Normal Respiratory: RLL Diminished, LLL Diminished Cardiovascular: Normal. negative: Edema : Normal Auscultation: Bowel Sounds: Normal Palpation: Normal Tenderness: LUQ, Epigastric Skin: Normal Musculoskeletal: Back:Thoracic, Back:Lumbar, Tender (C SPINE) Psychiatric: Anxiety Mood Description: Calm Speech Pattern: Clear, Appropriate - Assessment/Plan (1) Chest pain, rule out acute myocardial infarction Status: Acute Plan: ADMIT, SERIAL CE, EKG. CXR, PAIN CONTROL. BP AND LIPID MONITORING. VERIFY HOME MEDS, OBTAIN D/C SUMMARY LAST HOSPITAL VISIT. CONTINUOUS CARDIAC MONITORING. RESUME HOME MEDS (2) Osteoarthritis Status: Acute (3) Hypertension Status: Acute (4) Epigastric abdominal pain Status: Acute - Allergies Allergies/Adverse Reactions: Allergies Allergy/AdvReac Type Severity Reaction Status Date / Time No Known Drug Allergies Allergy Verified 01/10/18 01:49
--- NOTE | 2018-01-21 12:14 | PCM.PROG ---
Progress Note - Progress Note for Day of Date of Exam: 01/21/18 - Subjective Subjective: 82 WM ER ADMISSION ON 01/20 WITH CHEST PAIN. PT HAS HAD 2 NORMAL CE' S. PT CONTINUES TO CO EPIGASTRIC PAIN AND NECK PAIN, ONSET AFTER RECENT FALL. PT STARTED ON IV PROTONIX AND CARAFATE, CT C AND T SPINE ORDERED. WILL CONTINUE TELEMETRY AND BP CONTROL - Past Medical Family Social History Past Med/Fam/Surg Hx: No changes since H&P Allergies: Allergies No Known Drug Allergies Allergy (Verified 01/10/18 01:49) - Review of Systems ROS: No change since H&P - Vital Signs and I&O's Vital Signs: Temperature 98.9 F Pulse Rate [Right Radial] 66 Pulse Rate 84 Respiratory Rate 20 Blood Pressure [Right Arm] 147/63 Blood Pressure 119/66 O2 Sat by Pulse Oximetry 91 Intake and Output: Intake & Output 01/19/18 01/20/18 01/21/18 01/22/18 11:59 11:59 11:59 11:59 Intake Total 320 / 320 Balance 320 / 320 - Physical Exam Oriented: Normal Eyes: Normal Ear: Normal Nose: Normal Throat: Normal Respiratory: Diminished Cardiovascular: Normal. negative: Edema : Normal Auscultation: Bowel Sounds: Normal Tenderness: LUQ, Epigastric Skin: Normal Musculoskeletal: Back:Thoracic, Back:Lumbar, Tender (C SPINE) Psychiatric: Anxiety Mood Description: Calm Speech Pattern: Clear, Appropriate - Laboratory and Diagnostics Result Diagrams: 01/21/18 05:10 01/21/18 05:10 Labs: Laboratory WBC 7.1 X10^3/uL (3.6-10.0) 01/21/18 05:10 RBC 4.37 X10^6/uL (4.7-6.0) L 01/21/18 05:10 Hgb 14.4 g/dL (13.5-18.0) 01/21/18 05:10 Hct 42.0 % (42.0-54.0) 01/21/18 05:10 MCV 96.0 fL (80.0-100.0) 01/21/18 05:10 MCH 33.0 pg (27.0-34.0) 01/21/18 05:10 MCHC 34.4 g/dL (33.0-35.0) 01/21/18 05:10 RDW 11.6 % (11.6-16.5) 01/21/18 05:10 Plt Count 124 X10^3/uL (150.0-450.0) L 01/21/18 05:10 MPV 8.9 fL (7.4-11.0) 01/21/18 05:10 Neut % (Auto) 62.3 % (42.0-75.0) 01/21/18 05:10 Lymph % (Auto) 21.2 % (21.0-51.0) 01/21/18 05:10 [place] % (Auto) 9.3 % (0.0-13.0) 01/21/18 05:10 Eos % (Auto) 6.1 % (0.9-2.9) H 01/21/18 05:10 Baso % (Auto) 1.1 % (0.2-1.0) H 01/21/18 05:10 Neut # (Auto) 4.4 x10^3/uL (2.2-4.8) 01/21/18 05:10 Lymph # (Auto) 1.5 X10^3/uL (1.3-2.9) 01/21/18 05:10 [place] # (Auto) 0.7 x10^3/uL (0.3-0.8) 01/21/18 05:10 Eos # (Auto) 0.4 x10^3/uL (0.0-0.2) H 01/21/18 05:10 Baso # (Auto) 0.1 X10^3/uL (0.0-0.1) 01/21/18 05:10 Absolute Nucleated RBC 0.1 /100WBC 01/21/18 05:10 Sodium 143 mmol/L (136-145) 01/21/18 05:10 Corrected Sodium 144 mmol/L (136-145) 01/21/18 05:10 Potassium 5.8 mmol/L (3.5-5.1) H 01/21/18 05:10 Chloride 107 mmol/L (98-107) 01/21/18 05:10 Carbon Dioxide 37.7 mmol/L (21-32) H 01/21/18 05:10 BUN 23 mg/dL (7-18) H 01/21/18 05:10 Creatinine 1.35 mg/dL (0.70-1.30) H 01/21/18 05:10 Est GFR (MDRD) Af Amer > 60 (>60) 01/21/18 05:10 Est GFR (MDRD) Non-Af 54 (>60) L 01/21/18 05:10 Glucose 154 mg/dL (65-99) H 01/21/18 05:10 POC Glucose (mg/dL) 230 mg/dL (65-99) H 01/21/18 12:05 Calcium 8.5 mg/dL (8.5-10.1) 01/21/18 05:10 Corrected Calcium 9.2 mg/dL (8.5-10.1) 01/21/18 05:10 Magnesium 2.3 mg/dL (1.7-2.9) 01/21/18 05:10 Total Bilirubin 0.40 mg/dL (0.2-1.0) 01/21/18 05:10 AST 34 Units/L (15-37) 01/21/18 05:10 ALT 66 Units/L (12-78) 01/21/18 05:10 Alkaline Phosphatase 164 Units/L (46-116) H 01/21/18 05:10 Creatine Kinase 41 Units/L (39-308) 01/21/18 05:10 CK-MB (CK-2) < 1.0 ng/mL (0-4.0) 01/21/18 05:10 CK/CKMB % Calc 2.4 % (<4) 01/21/18 05:10 Troponin I < 0.02 ng/mL (0-1.5) 01/21/18 05:10 Total Protein 6.4 g/dL (6.4-8.2) 01/21/18 05:10 Albumin 3.1 g/dL (3.4-5.0) L 01/21/18 05:10 Globulin 3.3 g/dL (2.5-4.5) 01/21/18 05:10 Albumin/Globulin Ratio 0.9 Ratio (1.1-2.1) L 01/21/18 05:10 Triglycerides 71 mg/dL (0-150) 01/21/18 05:10 Cholesterol 125 mg/dL (0-200) 01/21/18 05:10 LDL Cholesterol, Calc 60 mg/dL (0-100) 01/21/18 05:10 HDL Cholesterol 51 mg/dL (40-60) 01/21/18 05:10 Cholesterol/HDL Ratio 2.5 (0.0-5.0) 01/21/18 05:10 Amylase 45 Units/L (25-115) 01/20/18 11:10 Lipase 71 Units/L (73-393) L 01/20/18 11:10 Specimen Type Random urine 01/20/18 14:15 Urine Color Yellow (YELLOW) 01/20/18 14:15 Urine Appearance Clear (CLEAR) 01/20/18 14:15 Urine pH 6.0 (5.0 - 8.0) 01/20/18 14:15 Ur Specific [place] 1.015 (1.000-1.030) 01/20/18 14:15 Urine Protein 3+ (NEGATIVE) 01/20/18 14:15 Urine Glucose (UA) Negative (NEGATIVE) 01/20/18 14:15 Urine Ketones Negative (NEGATIVE) 01/20/18 14:15 Urine Occult Blood 2+ (NEGATIVE) 01/20/18 14:15 Urine Nitrite Negative (NEGATIVE) 01/20/18 14:15 Urine Bilirubin Negative (NEGATIVE) 01/20/18 14:15 Urine Urobilinogen Normal (NORMAL) 01/20/18 14:15 Ur Leukocyte Esterase 1+ (NEGATIVE) 01/20/18 14:15 Urine RBC 0-2 /HPF (NONE SEEN) 01/20/18 14:15 Urine WBC 0-2 /HPF (NONE SEEN) 01/20/18 14:15 Ur Squamous Epith Cells Rare /HPF (NEGATIVE) 01/20/18 14:15 Urine Bacteria Negative /HPF (NEGATIVE) 01/20/18 14:15 Urine Mucus Rare /HPF (NEGATIVE) 01/20/18 14:15 Ur Culture Indicated? No/not indicated 01/20/18 14:15 H. pylori IgG Antibody Negative (NEGATIVE) 01/20/18 11:10 - Plan (1) Chest pain, rule out acute myocardial infarction Status: Acute Plan: SERIAL CE STABLE, EKG. CXR, PAIN CONTROL. BP AND LIPID MONITORING. VERIFY HOME MEDS, OBTAIN D/C SUMMARY LAST HOSPITAL VISIT. CONTINUOUS CARDIAC MONITORING. PPI THERAPY, PO CARAFATE. CT NECK AND TSPINE (2) Osteoarthritis Status: Acute (3) Hypertension Status: Acute (4) Epigastric abdominal pain Status: Acute
[2018-01-21] MEDS ORDERED: PROTONIX INJ 40 MG VIAL IVP SCH (13:00)
[2018-01-21] MEDS: CARAFATE ORAL SUSP PO SCH ×2 (14:46→16:30)
--- NOTE | 2018-01-21 16:14 | CT ---
HEAD CT WITHOUT IV CONTRAST CERVICAL AND THORACIC SPINE CT WITHOUT IV CONTRAST CLINICAL INDICATION: Headache. Fall 3 months ago. TECHNIQUE: Axial CT images from skull base to vertex without IV contrast. Multiple-row detector helic al CT examination of the cervical and thoracic spine without IV contrast. Axial, sagittal, and delatorre l reconstructed images. Dose reduction techniques including Automated Exposure Control (AEC) and adju stment of mA and kV were utlized. COMPARISON: None FINDINGS: Head CT: There is no abnormal brain parenchymal density. There is no evidence of acute infarction, intracrania l hemorrhage, mass or mass effect, or abnormal extra-axial collection. The density of the larger dura l venous sinuses is normal. The ventricles are normal in size, shape and position. The skull base a nd calvarium are normal. The included paranasal sinuses and mastoid air cells are predominantly clear . Cervical Spine CT: There is no evidence of acute fracture or subluxation. Normal alignment is maintained without scolios is or listhesis. Vertebral body heights are maintained. No aggressive osseous lesions are identified . Severe multilevel degenerative disc disease. There is no abnormality of the cranio-cervical juncti on. The prevertebral and paraspinal soft tissues demonstrate no abnormality. Thoracic spine CT: There is no evidence of acute fracture or subluxation. Normal alignment is maintained without scolios is or listhesis. Vertebral body heights are maintained. No aggressive osseous lesions are identified . Severe multilevel degenerative disc disease. 6 mm left lower lobe pulmonary nodule on series 3, chano ge 51. 6 mm right lower lobe nodule on series 3, image 75. IMPRESSION: 1. No acute intracranial abnormality. 2. No acute abnormality of the cervical or thoracic spine. 3. Bilateral lower lobe pulmonary nodules as above. Recommend correlation with prior exams if availab le to confirm stability. Otherwise, if patient is at low risk for lung cancer, no further follow up needed; if patient is at high risk for lung cancer, optional followup CT at 12 months. http://pubs.rsna.org/doi/abs/10.1148/[email or web address] Reported By:
[2018-01-21 18:20] VITALS: BP 131/60
== END 2018-01-21 18:25 | disposition home or self-care (01) ==
LOC: ER 10:10 → MED/SURG 10:10
PROVIDERS: ADMIT Internal Medicine; ATTEND Internal Medicine
DX: R10.13 Epigastric pain; W18.39XA Other fall on same level, initial encounter; R06.02 Shortness of breath; R07.89 Other chest pain; R94.31 Abnormal electrocardiogram [ECG] [EKG]; M15.8 Other polyosteoarthritis; R10.84 Generalized abdominal pain; R91.1 Solitary pulmonary nodule; R94.4 Abnormal results of kidney function studies; R51 Headache; Z79.899 Other long term (current) drug therapy; E11.65 Type 2 diabetes mellitus with hyperglycemia; M54.2 Cervicalgia; R11.0 Nausea; I10 Essential (primary) hypertension; K52.89 Other specified noninfective gastroenteritis and colitis; E78.2 Mixed hyperlipidemia
CPT/HCPCS: 36415; 70450; 71010; 71045; 72125; 72128; 74176; 80053; 80061; 81001; 82150; 82550; 82553; 83690; 83735; 84484; 85025; 86677; 93005; 94760; 96365; 96374; 96375; 99217; 99218; 99284; A4222; C9113; S0028; G0378; J1815; J2405; J7030

== ENCOUNTER 2018-03-19 12:24 | Inpatient (IN) ==
[2018-03-19] MEDS ORDERED: NS 1000 ML 1,000 ML IV SCH (13:00)
[2018-03-19 13:24] LABS: BASOPHILS # (AUTO) 0.1 X10^3/uL (0.0-0.1); EOSINOPHILS # (AUTO) 0.1 x10^3/uL (0.0-0.2); EOSINOPHILS % (AUTO) 0.7 % (0.9-2.9); HEMATOCRIT 42.8 % (42.0-54.0); HEMOGLOBIN 14.6 g/dL (13.5-18.0); LYMPHOCYTES # (AUTO) 0.5 X10^3/uL (1.3-2.9); LYMPHOCYTES % (AUTO) 7.1 % (21.0-51.0); MEAN CORPUSCULAR HEMOGLOBIN 33.3 pg (27.0-34.0); MEAN CORPUSCULAR HGB CONC 34.2 g/dL (33.0-35.0); MEAN CORPUSCULAR VOLUME 97.5 fL (80.0-100.0); MEAN PLATELET VOLUME 8.7 fL (7.4-11.0); MONOCYTES # (AUTO) 0.4 x10^3/uL (0.3-0.8); MONOCYTES % (AUTO) 5.5 % (0.0-13.0); NEUTROPHILS # (AUTO) 6.6 x10^3/uL (2.2-4.8); NEUTROPHILS % (AUTO) 85.7 % (42.0-75.0); PLATELET COUNT 139 X10^3/uL (150.0-450.0); RED BLOOD COUNT 4.39 X10^6/uL (4.7-6.0); RED CELL DISTRIBUTION WIDTH 12.4 % (11.6-16.5); WHITE BLOOD COUNT 7.7 X10^3/uL (3.6-10.0)
[2018-03-19] MEDS ORDERED: MORPHINE SULFATE INJ 4 MG IVP ONE ×2 (13:37→17:08)
[2018-03-19] MEDS ORDERED: MORPHINE SULFATE INJ 4 MG ONE ×2 (13:39→17:09)
[2018-03-19 13:46] LABS: CREATINE KINASE 52 Units/L (39-308); CREATINE KINASE MB < 1.0 ng/mL (0-4.0); MAGNESIUM 1.8 mg/dL (1.7-2.9); TROPONIN I 0.02 ng/mL (0-1.5)
[2018-03-19 13:50] LABS: ALANINE AMINOTRANSFERASE 113 Units/L (12-78); ALBUMIN 3.3 g/dL (3.4-5.0); ALKALINE PHOSPHATASE 492 Units/L (46-116); ASPARTATE AMINO TRANSFERASE 82 Units/L (15-37); BLOOD UREA NITROGEN 22 mg/dL (7-18); CALCIUM 8.8 mg/dL (8.5-10.1); CARBON DIOXIDE 30.1 mmol/L (21-32); CHLORIDE 103 mmol/L (98-107); COR CA(FOR HYPOALB) 9.4 mg/dL (8.5-10.1); COR NA(FOR HYPERGLY) 144 mmol/L (136-145); CREATININE 1.39 mg/dL (0.70-1.30); SODIUM 142 mmol/L (136-145); TOTAL PROTEIN 6.5 g/dL (6.4-8.2); eGFR NON BLACK RACES 52 (>60)
[2018-03-19 13:51] LABS: CKMB % 1.9 % (<4)
[2018-03-19] MEDS ORDERED: NS 100 ML IV 100 ML IV ONE (14:06)
--- NOTE | 2018-03-19 14:55 | DR.CP ---
HPI Time Seen Time Seen by Provider: 03/19/18 12:44 PCP Primary Care Physician: KILEY Complaint Chief Complaint:: PT C/O CHEST PAIN AND SOB AT TIMES. PT'S FAMILY STATES PT IS VERY CONFUSED NOT EATING. WHEN PT POINTS TO THE AREA OF THE PAIN HE HOLDS HIS EPIGASTRIC AREA. PT WAS SEEN BY DR CAO TUESDAY AND WAS GIVEN NEW PRESCRIPTIONS FOR PERCOCET. Source History Provided: Patient Mode of Arrival Mode of Arrival: Ambulatory Timing Onset of Chief Complaint: 03/19/18 PMH PMH Past Medical History: Yes Past Medical History: Diabetes, Dyslipidemia and Hypertension Past Surgical History: Yes Surgical History: Cholecystectomy, Ortho Surgery and Tonsillectomy Family History History of Family Medical Conditions: Yes Family Medical History: Diabetes Mellitus, Cancer and Hypertension Social History Does any household member use tobacco: No Alcohol Use: None Do you use any recreational Drugs:: No Lives With: Family Lives Where: Home infectious screening In the last 2 months have you had wt loss of >10#?: NO Have you had fever, night sweats or hemotysis?: No Have you traveled outside the country in the last 6 months?: No Isolation: Standard PE Vitals Vitals: Temperature 98.5 F Pulse Rate [Apical] 79 Pulse Rate 113 Respiratory Rate 20 Blood Pressure [Left Arm] 157/72 Blood Pressure [Right Arm] 152/75 Blood Pressure 122/60 O2 Sat by Pulse Oximetry 94 General Limitations: No Limitations General Appearance: Alert and In No Apparent Distress Head Head Exam: Normal Inspection, Atraumatic and Normocephalic Eyes Eye exam: Normal Appearance, PERRL and EOMI ENT ENT Exam: Normal Exam and Normal Oropharynx Chest Chest Inspection: Normal Inspection and Symmetric Chest Wall Rise Respiratory Respiratory Exam: Normal Lung Sounds Bilat Respiratory Exam: Bilateral: Clear to Auscultation Cardiovascular Cardiovascular Exam: Regular Rate and Normal Rhythm Abdominal Exam Abdominal Exam: Normal Inspection and Normal Bowel Sounds Extremities Extremities Exam: Normal Inspection and Full ROM Back Back Exam: Normal Inspection and Full ROM Neurologic Neurological Exam: Alert, Oriented X3 and CN II-XII Intact Psychiatric Psychiatric Exam: Normal Affect and Normal Mood Skin Skin Exam: Warm, Dry, Intact and Normal Color COURSE Consultation Called: 17:00 Consultation Comments: Dr Garcia consented to admit patient for further treatment and workup. ROR Labs Reviewed Laboratory Results Reviewed?: Yes Result Diagrams: 03/20/18 04:00 03/20/18 04:00 Laboratory: WBC 8.2 X10^3/uL (3.6-10.0) 03/20/18 04:00 RBC 4.00 X10^6/uL (4.7-6.0) L 03/20/18 04:00 Hgb 13.4 g/dL (13.5-18.0) L 03/20/18 04:00 Hct 39.0 % (42.0-54.0) L 03/20/18 04:00 MCV 97.6 fL (80.0-100.0) 03/20/18 04:00 MCH 33.6 pg (27.0-34.0) 03/20/18 04:00 MCHC 34.4 g/dL (33.0-35.0) 03/20/18 04:00 RDW 12.3 % (11.6-16.5) 03/20/18 04:00 Plt Count 126 X10^3/uL (150.0-450.0) L 03/20/18 04:00 MPV 8.8 fL (7.4-11.0) 03/20/18 04:00 Neut % (Auto) 76.4 % (42.0-75.0) H 03/20/18 04:00 Lymph % (Auto) 13.3 % (21.0-51.0) L 03/20/18 04:00 [place] % (Auto) 8.6 % (0.0-13.0) 03/20/18 04:00 Eos % (Auto) 1.1 % (0.9-2.9) 03/20/18 04:00 Baso % (Auto) 0.6 % (0.2-1.0) 03/20/18 04:00 Neut # (Auto) 6.3 x10^3/uL (2.2-4.8) H 03/20/18 04:00 Lymph # (Auto) 1.1 X10^3/uL (1.3-2.9) L 03/20/18 04:00 [place] # (Auto) 0.7 x10^3/uL (0.3-0.8) 03/20/18 04:00 Eos # (Auto) 0.1 x10^3/uL (0.0-0.2) 03/20/18 04:00 Baso # (Auto) 0.0 X10^3/uL (0.0-0.1) 03/20/18 04:00 Absolute Nucleated RBC 0.0 /100WBC 03/20/18 04:00 INR Target Range - 03/19/18 12:58 INR 1.25 (0.8-1.3) 03/19/18 12:58 D-Dimer 3280 ng/mL (0-400) H* 03/19/18 12:58 Sodium 142 mmol/L (136-145) 03/20/18 04:00 Corrected Sodium 144 mmol/L (136-145) 03/20/18 04:00 Potassium 4.4 mmol/L (3.5-5.1) 03/20/18 04:00 Chloride 105 mmol/L (98-107) 03/20/18 04:00 Carbon Dioxide 28.9 mmol/L (21-32) 03/20/18 04:00 BUN 20 mg/dL (7-18) H 03/20/18 04:00 Creatinine 1.23 mg/dL (0.70-1.30) 03/20/18 04:00 Est GFR (MDRD) Af Amer > 60 (>60) 03/20/18 04:00 Est GFR (MDRD) Non-Af 60 (>60) 03/20/18 04:00 Glucose 195 mg/dL (65-99) H 03/20/18 04:00 POC Glucose (mg/dL) 168 mg/dL (65-99) H 03/20/18 05:58 Calcium 8.1 mg/dL (8.5-10.1) L 03/20/18 04:00 Corrected Calcium 9.1 mg/dL (8.5-10.1) 03/20/18 04:00 Magnesium 1.8 mg/dL (1.7-2.9) 03/19/18 12:58 Total Bilirubin 1.60 mg/dL (0.2-1.0) H 03/20/18 04:00 AST 79 Units/L (15-37) H 03/20/18 04:00 ALT 101 Units/L (12-78) H 03/20/18 04:00 Alkaline Phosphatase 437 Units/L (46-116) H 03/20/18 04:00 Ammonia 26 umol/L (11-32) 03/20/18 00:33 Creatine Kinase 74 Units/L (39-308) 03/20/18 00:33 CK-MB (CK-2) < 1.0 ng/mL (0-4.0) 03/20/18 00:33 CK/CKMB % Calc 1.4 % (<4) 03/20/18 00:33 Troponin I 0.07 ng/mL (0-1.5) 03/20/18 00:33 Total Protein 6.1 g/dL (6.4-8.2) L 03/20/18 04:00 Albumin 2.8 g/dL (3.4-5.0) L 03/20/18 04:00 Globulin 3.3 g/dL (2.5-4.5) 03/20/18 04:00 Albumin/Globulin Ratio 0.8 Ratio (1.1-2.1) L 03/20/18 04:00 Specimen Type Clean catch urine 03/20/18 03:10 Urine Color [place] (YELLOW) 03/20/18 03:10 Urine Appearance Clear (CLEAR) 03/20/18 03:10 Urine pH 5.0 (5.0 - 8.0) 03/20/18 03:10 Ur Specific [place] 1.015 (1.000-1.030) 03/20/18 03:10 Urine Protein 3+ (NEGATIVE) 03/20/18 03:10 Urine Glucose (UA) Negative (NEGATIVE) 03/20/18 03:10 Urine Ketones 2+ (NEGATIVE) 03/20/18 03:10 Urine Occult Blood 3+ (NEGATIVE) 03/20/18 03:10 Urine Nitrite Negative (NEGATIVE) 03/20/18 03:10 Urine Bilirubin Negative (NEGATIVE) 03/20/18 03:10 Urine Urobilinogen 2+ (NORMAL) 03/20/18 03:10 Ur Leukocyte Esterase 1+ (NEGATIVE) 03/20/18 03:10 Urine RBC 5-10 /HPF (NONE SEEN) 03/20/18 03:10 Urine WBC 0-2 /HPF (NONE SEEN) 03/20/18 03:10 Ur Squamous Epith Cells Rare /HPF (NEGATIVE) 03/20/18 03:10 Urine Bacteria Trace /HPF (NEGATIVE) 03/20/18 03:10 Ur Culture Indicated? No/not indicated 03/20/18 03:10 Other Results Comments: Chest: Continued normal heart size with essentially clear lungs. minimal linear fibrotic scar left base. No evidence for pulmonary edema or pneumonia. CTA: No CT evidence of acute thoracic pathology or pulmonary embolus. 2. 2.7 cm pancreatic head mass with associated pancreatic ductal dilatation, pancreatic atrophy and abnormal appearing surrounding lymph nodes. 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 Recommend RRI of the abdomen with contrast, soft tissue sampling and PET-CT for further characterization. 3. Too numerous to count bilateral pulmonary nodules concerning for metastatic disease. Diagnosis Discharge Problem: Lung nodule, multiple, Dilation of pancreatic duct
[2018-03-19] MEDS ORDERED: ZOFRAN INJ 4 MG VIAL ONE (15:15)
[2018-03-19] MEDS ORDERED: ZOFRAN INJ 4 MG VIAL IVP ONE (15:16)
[2018-03-19 19:15] LABS: CREATINE KINASE 59 Units/L (39-308); CREATINE KINASE MB < 1.0 ng/mL (0-4.0); TROPONIN I 0.04 ng/mL (0-1.5)
[2018-03-19 19:16] LABS: CKMB % 1.7 % (<4)
[2018-03-20] MEDS: MORPHINE SULFATE INJ 4 MG IVP PRN ×4 (00:51→22:17)
[2018-03-20 01:35] LABS: CKMB % 1.4 % (<4); CREATINE KINASE 74 Units/L (39-308); CREATINE KINASE MB < 1.0 ng/mL (0-4.0); TROPONIN I 0.07 ng/mL (0-1.5)
[2018-03-20 03:18] LABS: BILIRUBIN,URINE NEGATIVE (NEGATIVE); BLOOD/HEMOGLOBIN,URINE 3+ (NEGATIVE); GLUCOSE, URINE NEGATIVE (NEGATIVE); KETONES,URINE 2+ (NEGATIVE); LEUKOCYTE ESTERASE ,URINE 1+ (NEGATIVE); NITRITES,URINE NEGATIVE (NEGATIVE); PROTEIN,URINE 3+ (NEGATIVE); UROBILINOGEN,URINE 2+ (NORMAL)
[2018-03-20] MEDS: NORCO 5/325 MG TAB PO PRN ×3 (03:35→19:00)
[2018-03-20] MEDS: ZOFRAN INJ 4 MG VIAL IVP PRN (03:35)
[2018-03-20 03:41] LABS: APPEARANCE,URINE CLEAR (CLEAR); BACTERIA,URINE TRACE /HPF (NEGATIVE); COLOR,URINE AMBER (YELLOW); SQUAMOUS EPITHELIAL CELL,UR RARE /HPF (NEGATIVE)
[2018-03-20] MEDS: NS 1000 ML 1,000 ML IV SCH ×3 (03:41→20:14)
[2018-03-20 05:19] LABS: BASOPHILS % (AUTO) 0.6 % (0.2-1.0); EOSINOPHILS # (AUTO) 0.1 x10^3/uL (0.0-0.2); EOSINOPHILS % (AUTO) 1.1 % (0.9-2.9); HEMOGLOBIN 13.4 g/dL (13.5-18.0); LYMPHOCYTES # (AUTO) 1.1 X10^3/uL (1.3-2.9); LYMPHOCYTES % (AUTO) 13.3 % (21.0-51.0); MEAN CORPUSCULAR HEMOGLOBIN 33.6 pg (27.0-34.0); MEAN CORPUSCULAR HGB CONC 34.4 g/dL (33.0-35.0); MEAN CORPUSCULAR VOLUME 97.6 fL (80.0-100.0); MEAN PLATELET VOLUME 8.8 fL (7.4-11.0); MONOCYTES # (AUTO) 0.7 x10^3/uL (0.3-0.8); MONOCYTES % (AUTO) 8.6 % (0.0-13.0); NEUTROPHILS # (AUTO) 6.3 x10^3/uL (2.2-4.8); NEUTROPHILS % (AUTO) 76.4 % (42.0-75.0); PLATELET COUNT 126 X10^3/uL (150.0-450.0); RED CELL DISTRIBUTION WIDTH 12.3 % (11.6-16.5); WHITE BLOOD COUNT 8.2 X10^3/uL (3.6-10.0)
[2018-03-20 05:35] LABS: ALANINE AMINOTRANSFERASE 101 Units/L (12-78); ALBUMIN 2.8 g/dL (3.4-5.0); ALKALINE PHOSPHATASE 437 Units/L (46-116); ASPARTATE AMINO TRANSFERASE 79 Units/L (15-37); BLOOD UREA NITROGEN 20 mg/dL (7-18); CALCIUM 8.1 mg/dL (8.5-10.1); CARBON DIOXIDE 28.9 mmol/L (21-32); CHLORIDE 105 mmol/L (98-107); COR CA(FOR HYPOALB) 9.1 mg/dL (8.5-10.1); COR NA(FOR HYPERGLY) 144 mmol/L (136-145); CREATININE 1.23 mg/dL (0.70-1.30); SODIUM 142 mmol/L (136-145); TOTAL PROTEIN 6.1 g/dL (6.4-8.2); eGFR NON BLACK RACES 60 (>60)
[2018-03-20 06:32] VITALS: BMI 25.6
[2018-03-20] MEDS ORDERED: SIMETHICONE PO PRN (15:31)
[2018-03-20] MEDS ORDERED: MAGNESIUM HYDROXIDE PO PRN (15:31)
[2018-03-20] MEDS ORDERED: ALUMINUM HYDROXIDE PO PRN (15:31)
[2018-03-20] MEDS ORDERED: TRAMADOL 200 MG PO SCH (15:45)
[2018-03-20] MEDS ORDERED: PriLOSEC PO SCH (16:00)
[2018-03-20] MEDS ORDERED: HumuLIN R SC PRN (16:19)
[2018-03-20] MEDS: XARELTO PO SCH (16:28)
[2018-03-20] MEDS: ZOLOFT PO SCH (16:28)
[2018-03-20] MEDS: ASPIRIN EC 81 MG PO SCH (16:29)
[2018-03-20] MEDS: PROTONIX TAB 40 MG PO SCH (16:29)
[2018-03-20] MEDS: CARAFATE PO SCH (16:29)
[2018-03-20] MEDS: HYZAAR 50/12.5 MG PO SCH (16:29)
[2018-03-20] MEDS ORDERED: INSULIN LISPRO 8 UNIT subcut SCH (16:30)
[2018-03-20] MEDS: MYSOLINE PO SCH (20:16)
[2018-03-20] MEDS: COLACE CAP 100 MG PO SCH (20:16)
[2018-03-20] MEDS: WELLBUTRIN SR 150 MG (BID) PO SCH (20:19)
[2018-03-20] MEDS: SNACK - Diabetic Appropriate PO SCH (20:19)
[2018-03-20] MEDS ORDERED: LANTUS SC SCH (21:00)
[2018-03-20] MEDS ORDERED: INSULIN GLARGINE 15 UNIT subcut SCH (21:00)
[2018-03-20] MEDS ORDERED: BUPROPION HCL 75 MG PO SCH (21:00)
[2018-03-21] MEDS: MORPHINE SULFATE INJ 4 MG IVP PRN ×3 (03:01→20:12)
[2018-03-21 05:10] LABS: BASOPHILS # (AUTO) 0.1 X10^3/uL (0.0-0.1); BASOPHILS % (AUTO) 0.7 % (0.2-1.0); EOSINOPHILS # (AUTO) 0.2 x10^3/uL (0.0-0.2); EOSINOPHILS % (AUTO) 2.2 % (0.9-2.9); HEMATOCRIT 38.8 % (42.0-54.0); HEMOGLOBIN 13.2 g/dL (13.5-18.0); LYMPHOCYTES # (AUTO) 0.9 X10^3/uL (1.3-2.9); LYMPHOCYTES % (AUTO) 12.9 % (21.0-51.0); MEAN CORPUSCULAR HEMOGLOBIN 33.3 pg (27.0-34.0); MEAN CORPUSCULAR VOLUME 98.1 fL (80.0-100.0); MEAN PLATELET VOLUME 8.7 fL (7.4-11.0); MONOCYTES # (AUTO) 0.6 x10^3/uL (0.3-0.8); MONOCYTES % (AUTO) 8.8 % (0.0-13.0); NEUTROPHILS # (AUTO) 5.5 x10^3/uL (2.2-4.8); NEUTROPHILS % (AUTO) 75.4 % (42.0-75.0); PLATELET COUNT 111 X10^3/uL (150.0-450.0); RED BLOOD COUNT 3.95 X10^6/uL (4.7-6.0); RED CELL DISTRIBUTION WIDTH 12.6 % (11.6-16.5); WHITE BLOOD COUNT 7.3 X10^3/uL (3.6-10.0)
[2018-03-21 05:14] LABS: ALANINE AMINOTRANSFERASE 89 Units/L (12-78); ALBUMIN 2.7 g/dL (3.4-5.0); ALKALINE PHOSPHATASE 425 Units/L (46-116); ASPARTATE AMINO TRANSFERASE 76 Units/L (15-37); BLOOD UREA NITROGEN 18 mg/dL (7-18); CALCIUM 8.1 mg/dL (8.5-10.1); CARBON DIOXIDE 29.5 mmol/L (21-32); CHLORIDE 105 mmol/L (98-107); COR CA(FOR HYPOALB) 9.1 mg/dL (8.5-10.1); COR NA(FOR HYPERGLY) 143 mmol/L (136-145); CREATININE 1.11 mg/dL (0.70-1.30); SODIUM 142 mmol/L (136-145); TOTAL PROTEIN 5.7 g/dL (6.4-8.2); eGFR NON BLACK RACES > 60 (>60)
[2018-03-21] MEDS: NORCO 5/325 MG TAB PO PRN ×4 (05:35→21:58)
[2018-03-21] MEDS: CARAFATE PO SCH ×3 (05:36→15:47)
[2018-03-21] MEDS: ZOFRAN INJ 4 MG VIAL IVP PRN (05:36)
[2018-03-21] MEDS: NS 1000 ML 1,000 ML IV SCH ×5 (05:36→15:47)
[2018-03-21] MEDS: ASPIRIN EC 81 MG PO SCH (08:03)
[2018-03-21] MEDS: PROTONIX TAB 40 MG PO SCH (08:04)
[2018-03-21] MEDS: HYZAAR 50/12.5 MG PO SCH (08:04)
[2018-03-21] MEDS: COLACE CAP 100 MG PO SCH ×2 (08:04→20:15)
[2018-03-21] MEDS: MYSOLINE PO SCH ×2 (08:04→20:14)
[2018-03-21] MEDS: WELLBUTRIN SR 150 MG (BID) PO SCH ×2 (08:05→20:14)
[2018-03-21] MEDS: XARELTO PO SCH (08:05)
[2018-03-21] MEDS: ZOLOFT PO SCH (08:05)
[2018-03-21] MEDS ORDERED: ULTRAM PO SCH (09:00)
[2018-03-21 09:55] LABS: AMYLASE 19 Units/L (25-115); LIPASE 47 Units/L (73-393)
--- NOTE | 2018-03-21 10:34 | DR.H&P ---
H&P - History & Physical for Day of: H&P Date: 03/19/18 - Chief Complaint Chief Complaint: CHEST PAIN, SOB, EPIGASTRIC PAIN, CONFUSION, DECREASED APPETITE - History of Present Illness History of Present Illness: IS A 82 YEAR OLD PATIENT OF OURS WHO PRESENTED TO THE ER WITH REPORTS OF CHEST PAIN, SHORTNESS OF BREATH, AND EPIGASTRIC PAIN. HIS FAMILY REPORTED THAT HE HAS BEEN CONFUSED AT TIMES AND NOT EATING WELL. HE WAS SEEN IN THE OFFICE ON TUESDAY AND GIVEN PERCOCET FOR PAIN. HE STATES THAT PAIN IS PERSISTENT DESPITE TAKING PERCOCET PRESCRIBED. ON ARRIVAL, VITALS WERE 97.1-113-20-91%-112/60. LABS WERE OBTAINED. ABNORMAL LAB VALUES INCLUDE THE FOLLOWING: RBC 4.39, PLT COUNT 139, D-DIMER 3280, BUN 22, CREATININE 1.39, GLUCOSE 203, TOTAL BILIRUBIN 1.80, AST 82, ALT 113, ALK PHOS 492, ALBUMIN 3.3. CARDIAC ENZYMES WITHIN NORMAL LIMITS. URINALYSIS REVEALED: WBC 0-2, RBC 5-10, LEUKOCYTES 1+, BACTERIA TRACE. EKG REVEALED: SINUS RHYTHM WITH HR 96. A CHEST XRAY WAS OBTAINED AND REVEALED: NO SIGNIFICANT INTERVAL CHANGE OR ACUTE FINDINGS. A CHEST CT WITH CONTRAST WAS OBTAINED AND REVEALED: TOO NUMEROUS TO COUNT BILATERAL PULMONARY NODULES CONCERNING FOR METASTATIC DISEASE; 2.7 CM PANCREATIC HEAD MASS ASSOCIATED PANCREATIC DUCTAL DILATION, PANCREATINC ATROPHY, AND ABNORMAL APPEARING SURROUNDING LYMPH NODES. THIS IS CONCERNING FOR METASTATIC DISEASE. HE WAS ADMITTED FOR FURTHER EVALUATION AND TREATMENT OF INTRACTABLE ABDOMINAL PAIN. WE PLAN TO OBTAIN AN ABDOMEN MRI IN THE MORNING. HE WAS STARTED ON NORMAL SALINE AT 80ML/HR. OTHERWISE, WE WILL FOLLOW UP WITH AM LABS AND CONTINUE TO MONITOR. - Past Medical History Past Medical History: Hypertension, Dyslipidemia, Diabetes - Past Surgical History Surgical History: Cholecystectomy, Ortho Surgery, Tonsillectomy - Family History Family Medical History: Diabetes Mellitus, Cancer, Hypertension - Social History Does any household member use tobacco: No Alcohol Use: None Drug Use: None - Medications Home Medications: No Known Drug Allergies Allergy (Verified 01/10/18 01:49) CONTINUE taking the following medications alum-mag hydroxide-simeth [Maalox Maximum Strength] 7.5 ml PO TID PRN 03/19/18 [History] aspirin [Aspirin Low Dose] 81 mg PO DAILY 03/19/18 [History] bupropion HCl 75 mg PO BID 03/19/18 [History] docusate sodium [Colace] 100 mg PO BID 03/19/18 [History] insulin glargine [Lantus Solostar U-100 Insulin] 15 unit SUBCUT HS 03/19/18 [History] insulin lispro [Humalog KwikPen Insulin] 8 unit SUBCUT AC 03/19/18 [History] lidocaine HCl [Lidocaine Viscous] 7.5 ml PO TID PRN 03/19/18 [History] losartan-hydrochlorothiazide 1 tab PO DAILY 03/19/18 [History] omeprazole 40 mg PO DAILY 03/19/18 [History] ondansetron 4 mg TRANSLINGUAL Q4H PRN 03/19/18 [History] pantoprazole 40 mg PO DAILY 03/19/18 [History] primidone 25 mg PO BID 03/19/18 [History] rivaroxaban [Xarelto] 10 mg PO DAILY 03/19/18 [History] sertraline 25 mg PO DAILY 03/19/18 [History] sucralfate 1 g PO AC 03/19/18 [History] tramadol 200 mg PO DAILY 03/19/18 [History] - Review of Systems Constitutional: Weakness, Other (DECREASED APPETITE ) Eyes: No Symptoms Reported ENT: No Symptoms Reported Respiratory: See HPI, Shortness of Breath Cardiovascular: Chest Pain Gastrointestinal: See HPI, Nausea, Abdominal Pain Genitourinary: No Symptoms Reported Musculoskeletal: No Symptoms Reported Skin: No Symptoms Reported Neurological: Weakness - Physical Exam Vital Signs: Temperature 98.5 F Pulse Rate [Apical] 67 Pulse Rate 113 Respiratory Rate 20 Blood Pressure [Left Arm] 165/78 Blood Pressure [Right Arm] 152/75 Blood Pressure 122/60 O2 Sat by Pulse Oximetry 93 Oriented: Normal Eyes: Normal Ear: Normal Nose: Normal Throat: Normal Respiratory: Diminished Throughout Cardiovascular: Normal. negative: S3, S4, Murmur : Normal Auscultation: Bowel Sounds: Normal Palpation: Normal Tenderness: Epigastric. negative: Rebound, Guarding, Rigidity Skin: Normal Musculoskeletal: Normal Psychiatric: Normal Mood Description: Calm Affect: Normal Speech Pattern: Clear - Assessment/Plan (1) Chest pain, rule out acute myocardial infarction Status: Acute Plan: SERIAL CARDIAC ENZYMES AND EKGS, TELEMETRY, SUPPLEMENTAL OXYGEN, CONTINUE TO MONITOR (2) Epigastric abdominal pain Status: Acute Plan: ABDOMEN MRI IN AM, CONTINUE TO MONITOR - Allergies Allergies/Adverse Reactions: Allergies Allergy/AdvReac Type Severity Reaction Status Date / Time No Known Drug Allergies Allergy Verified 01/10/18 01:49
--- NOTE | 2018-03-21 11:03 | PCM.PROG ---
Progress Note - Progress Note for Day of Date of Exam: 03/20/18 - Subjective Subjective: WAS ADMITTED FOR INTRACTABLE EPIGASTRIC PAIN, CHEST PAIN, AND CONFUSION. TODAY, HE IS ALERT AND ORIENTED, LYING IN BED ON MORNING ROUNDS. HE CONTINUES WITH COMPLAINTS OF EPIGASTRIC PAIN. HE DENIES CURRENTLY HAVING ANY CHEST PAIN. FAMILY REPORTS THAT HE WAS CONFUSED AT TIMES THROUGHOUT THE NIGHT. ON EXAMINATION, HEART IS REGULAR IN RATE AND RHYTHM. BILATERAL LUNGS ARE NOTED WITH DIMINISHED LUNG SOUNDS THROUGHOUT. ABDOMEN IS ROUND AND NOTED WITH MODERATE EPIGASTRIC TENDERNESS ON PALPATION. NORMAL BOWEL SOUNDS NOTED ON ALL QUADRANTS. HIS VITALS TODAY ARE 98.9-76-20-93%NC-174/79. LABS WERE OBTAINED. ABNORMAL LAB VALUES INCLUDE THE FOLLOWING: RBC 4.00, HGB 13.4, HCT 39.0, PLT COUNT 126, BUN 20, GLUCOSE 195, CALCIUM 8.1, TOTAL BILI 1.60, AST 79, ALT 101, ALK PHOS 437, TOTAL PROTEIN 6.1, ALBUMIN 2.8. HE IS SCHEDULED FOR AN ABDOMEN MRI TODAY. WE WILL ALSO OBTAIN A BRAIN MRI. OTHERWISE, WE WILL FOLLOW UP WITH AM LABS AND CONTINUE TO MONITOR PATIENT. - Past Medical Family Social History Past Med/Fam/Surg Hx: No changes since H&P Allergies: Allergies No Known Drug Allergies Allergy (Verified 01/10/18 01:49) - Review of Systems ROS: No change since H&P - Vital Signs and I&O's Vital Signs: Temperature 98.5 F Pulse Rate [Apical] 67 Pulse Rate 113 Respiratory Rate 20 Blood Pressure [Left Arm] 165/78 Blood Pressure [Right Arm] 152/75 Blood Pressure 122/60 O2 Sat by Pulse Oximetry 93 Intake and Output: Intake & Output 03/18/18 03/19/18 03/20/18 03/21/18 11:59 11:59 11:59 11:59 Intake Total 560 / 560 1530 / 1530 Balance 560 / 560 1530 / 1530 - Physical Exam Oriented: Normal Eyes: Normal Ear: Normal Nose: Normal Throat: Normal Respiratory: Generalized, Diminished Cardiovascular: Normal. negative: S3, S4, Murmur : Normal Auscultation: Bowel Sounds: Normal Palpation: Normal Tenderness: Epigastric. negative: Rebound, Guarding, Rigidity Skin: Normal Musculoskeletal: Normal Psychiatric: Normal Mood Description: Calm Affect: Normal Speech Pattern: Clear - Laboratory and Diagnostics Result Diagrams: 03/21/18 04:03 03/21/18 04:03 Labs: Laboratory WBC 7.3 X10^3/uL (3.6-10.0) 03/21/18 04:03 RBC 3.95 X10^6/uL (4.7-6.0) L 03/21/18 04:03 Hgb 13.2 g/dL (13.5-18.0) L 03/21/18 04:03 Hct 38.8 % (42.0-54.0) L 03/21/18 04:03 MCV 98.1 fL (80.0-100.0) 03/21/18 04:03 MCH 33.3 pg (27.0-34.0) 03/21/18 04:03 MCHC 34.0 g/dL (33.0-35.0) 03/21/18 04:03 RDW 12.6 % (11.6-16.5) 03/21/18 04:03 Plt Count 111 X10^3/uL (150.0-450.0) L 03/21/18 04:03 MPV 8.7 fL (7.4-11.0) 03/21/18 04:03 Neut % (Auto) 75.4 % (42.0-75.0) H 03/21/18 04:03 Lymph % (Auto) 12.9 % (21.0-51.0) L 03/21/18 04:03 Real % (Auto) 8.8 % (0.0-13.0) 03/21/18 04:03 Eos % (Auto) 2.2 % (0.9-2.9) 03/21/18 04:03 Baso % (Auto) 0.7 % (0.2-1.0) 03/21/18 04:03 Neut # (Auto) 5.5 x10^3/uL (2.2-4.8) H 03/21/18 04:03 Lymph # (Auto) 0.9 X10^3/uL (1.3-2.9) L 03/21/18 04:03 Real # (Auto) 0.6 x10^3/uL (0.3-0.8) 03/21/18 04:03 Eos # (Auto) 0.2 x10^3/uL (0.0-0.2) 03/21/18 04:03 Baso # (Auto) 0.1 X10^3/uL (0.0-0.1) 03/21/18 04:03 Absolute Nucleated RBC 0.0 /100WBC 03/21/18 04:03 INR Target Range - 03/19/18 12:58 INR 1.25 (0.8-1.3) 03/19/18 12:58 D-Dimer 3280 ng/mL (0-400) H* 03/19/18 12:58 Sodium 142 mmol/L (136-145) 03/21/18 04:03 Corrected Sodium 143 mmol/L (136-145) 03/21/18 04:03 Potassium 4.3 mmol/L (3.5-5.1) 03/21/18 04:03 Chloride 105 mmol/L (98-107) 03/21/18 04:03 Carbon Dioxide 29.5 mmol/L (21-32) 03/21/18 04:03 BUN 18 mg/dL (7-18) 03/21/18 04:03 Creatinine 1.11 mg/dL (0.70-1.30) 03/21/18 04:03 Est GFR (MDRD) Af Amer > 60 (>60) 03/21/18 04:03 Est GFR (MDRD) Non-Af > 60 (>60) 03/21/18 04:03 Glucose 162 mg/dL (65-99) H 03/21/18 04:03 POC Glucose (mg/dL) 149 mg/dL (65-99) H 03/21/18 05:08 Calcium 8.1 mg/dL (8.5-10.1) L 03/21/18 04:03 Corrected Calcium 9.1 mg/dL (8.5-10.1) 03/21/18 04:03 Magnesium 1.8 mg/dL (1.7-2.9) 03/19/18 12:58 Total Bilirubin 1.50 mg/dL (0.2-1.0) H 03/21/18 04:03 AST 76 Units/L (15-37) H 03/21/18 04:03 ALT 89 Units/L (12-78) H 03/21/18 04:03 Alkaline Phosphatase 425 Units/L (46-116) H 03/21/18 04:03 Ammonia 26 umol/L (11-32) 03/20/18 00:33 Creatine Kinase 74 Units/L (39-308) 03/20/18 00:33 CK-MB (CK-2) < 1.0 ng/mL (0-4.0) 03/20/18 00:33 CK/CKMB % Calc 1.4 % (<4) 03/20/18 00:33 Troponin I 0.07 ng/mL (0-1.5) 03/20/18 00:33 Total Protein 5.7 g/dL (6.4-8.2) L 03/21/18 04:03 Albumin 2.7 g/dL (3.4-5.0) L 03/21/18 04:03 Globulin 3.0 g/dL (2.5-4.5) 03/21/18 04:03 Albumin/Globulin Ratio 0.9 Ratio (1.1-2.1) L 03/21/18 04:03 Amylase 19 Units/L (25-115) L 03/21/18 04:03 Lipase 47 Units/L (73-393) L 03/21/18 04:03 Specimen Type Clean catch urine 03/20/18 03:10 Urine Color Krystle (YELLOW) 03/20/18 03:10 Urine Appearance Clear (CLEAR) 03/20/18 03:10 Urine pH 5.0 (5.0 - 8.0) 03/20/18 03:10 Ur Specific [place] 1.015 (1.000-1.030) 03/20/18 03:10 Urine Protein 3+ (NEGATIVE) 03/20/18 03:10 Urine Glucose (UA) Negative (NEGATIVE) 03/20/18 03:10 Urine Ketones 2+ (NEGATIVE) 03/20/18 03:10 Urine Occult Blood 3+ (NEGATIVE) 03/20/18 03:10 Urine Nitrite Negative (NEGATIVE) 03/20/18 03:10 Urine Bilirubin Negative (NEGATIVE) 03/20/18 03:10 Urine Urobilinogen 2+ (NORMAL) 03/20/18 03:10 Ur Leukocyte Esterase 1+ (NEGATIVE) 03/20/18 03:10 Urine RBC 5-10 /HPF (NONE SEEN) 03/20/18 03:10 Urine WBC 0-2 /HPF (NONE SEEN) 03/20/18 03:10 Ur Squamous Epith Cells Rare /HPF (NEGATIVE) 03/20/18 03:10 Urine Bacteria Trace /HPF (NEGATIVE) 03/20/18 03:10 Ur Culture Indicated? No/not indicated 03/20/18 03:10 - Plan (1) Chest pain, rule out acute myocardial infarction Status: Acute Plan: SERIAL CARDIAC ENZYMES AND EKGS, TELEMETRY, SUPPLEMENTAL OXYGEN, CONTINUE TO MONITOR (2) Epigastric abdominal pain Status: Acute Plan: ABDOMEN MRI IN AM, CONTINUE TO MONITOR (3) Altered mental status Status: Acute Qualifiers: Altered mental status type: persistent vegetative state Qualified Code(s): R40.3 - Persistent vegetative state Plan: OBTAIN BRAIN MRI, CONTINUE TO MONITOR
--- NOTE | 2018-03-21 12:34 | DR.CONSULT ---
Consult - Consultation for Day of: Date: 03/21/18 - Chief Complaint Chief Complaint: Patient referred for abnormal imaging of pancreas. Patinet with complaints of epigastric pain and nausea. - History of Present Illness History of Present Illness: Patient is a 82yo male who was referred for abnormal imaging of pancreas. Patient with complaints of nausea adn epigastric pain. Patient denies dysphagia dyspepsia, vomiting, constipation, diarrhea, melena and hematochezia. Patient last had EGD by Dr. Granados 03/06/18 which showed erosive gastritis. Abdominal MRI showed atrophic pancreas wiht numerous cysts scattered in the pancreas, and dominant 2cm cyst mass along the junction of the head and body of the pancreas, atrophic left kidney with numerous cystic masses bilateral. MRI of brain showed small focus of enhancement within the occipital lobe concerning for possible metastatic disease. Hgb stable at 13.2, Hct 38.8, Plt 111, Total Bilirubin 1.5, AST 76, ALT 89, Alk Phos 475, Amylase 19, Lipase 47. Patient was seen in the office with Abnormal liver enzymes and abnormal LFT panel and Hepatitis Profile ordered which are still pending. - Past Medical History Past Medical History: Hypertension, Dyslipidemia, Diabetes - Past Surgical History Surgical History: Cholecystectomy, Ortho Surgery, Tonsillectomy - Family History Family Medical History: Diabetes Mellitus, Cancer, Hypertension - Social History Does any household member use tobacco: No Alcohol Use: None Drug Use: None - Medications Home Medications: No Known Drug Allergies Allergy (Verified 01/10/18 01:49) CONTINUE taking the following medications alum-mag hydroxide-simeth [Maalox Maximum Strength] 7.5 ml PO TID PRN 03/19/18 [History] aspirin [Aspirin Low Dose] 81 mg PO DAILY 03/19/18 [History] bupropion HCl 75 mg PO BID 03/19/18 [History] docusate sodium [Colace] 100 mg PO BID 03/19/18 [History] insulin glargine [Lantus Solostar U-100 Insulin] 15 unit SUBCUT HS 03/19/18 [History] insulin lispro [Humalog KwikPen Insulin] 8 unit SUBCUT AC 03/19/18 [History] lidocaine HCl [Lidocaine Viscous] 7.5 ml PO TID PRN 03/19/18 [History] losartan-hydrochlorothiazide 1 tab PO DAILY 03/19/18 [History] omeprazole 40 mg PO DAILY 03/19/18 [History] ondansetron 4 mg TRANSLINGUAL Q4H PRN 03/19/18 [History] pantoprazole 40 mg PO DAILY 03/19/18 [History] primidone 25 mg PO BID 03/19/18 [History] rivaroxaban [Xarelto] 10 mg PO DAILY 03/19/18 [History] sertraline 25 mg PO DAILY 03/19/18 [History] sucralfate 1 g PO AC 03/19/18 [History] tramadol 200 mg PO DAILY 03/19/18 [History] - Review of Systems Constitutional: Weakness Eyes: No Symptoms Reported ENT: No Symptoms Reported Respiratory: No Symptoms Reported Cardiovascular: No Symptoms Reported Gastrointestinal: See HPI, Nausea, Abdominal Pain (epigastric). denies: Vomit ing, Diarrhea, Constipation, Melena, Hematochezia, Other Genitourinary: denies: No Symptoms Reported, See HPI, Dysuria, Frequency, Incontinence, Hematuria, Retention, Other Musculoskeletal: denies: No Symptoms Reported, See HPI, Shoulder Pain, Arm Pain, Back Pain, Hand Pain, Leg Pain, Foot Pain, Neck Pain, Other Skin: denies: No Symptoms Reported, See HPI, Rash, Lesions, Jaundice, Bruising, Wound, Ecchymosis, Other Neurological: denies: No Symptoms Reported, See HPI, Weakness, Numbness, Incoordination, Change in Speech, Confusion, Seizures, Other - Physical Exam Vital Signs: Temperature 98.5 F Pulse Rate [Apical] 67 Pulse Rate 113 Respiratory Rate 20 Blood Pressure [Left Arm] 165/78 Blood Pressure [Right Arm] 152/75 Blood Pressure 122/60 O2 Sat by Pulse Oximetry 93 Oriented: Normal, Time, Person, Place Eyes: Normal Ear: Normal Nose: Normal Throat: Normal Respiratory: Clear Throughout Cardiovascular: Normal Auscultation: Bowel Sounds: Normal Palpation: Normal, Other (no distention). negative: Spleen Enlarged, Liver Enlarged, Mass Pulsatile Tenderness: Epigastric Skin: Normal Musculoskeletal: Normal Psychiatric: Normal Mood Description: Calm Affect: Normal Speech Pattern: Clear, Appropriate - Plan Plan: Assessment. 1. 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 2. Abnormal LFTs likely CBD involvement of pancreatic mass r/o other etiologies. Plan. 1. Recommend EUS, Will arrange patient to be transfered to [facility] to Dr. Manzo, CA 19-9, CEA, AFP, Amylase, Lipase. 2. Abnormal LFT panel and hepatitis profile pending. Plan reviewed with Dr. Sanchez - Allergies Allergies/Adverse Reactions: Allergies Allergy/AdvReac Type Severity Reaction Status Date / Time No Known Drug Allergies Allergy Verified 01/10/18 01:49
[2018-03-21] MEDS: MAGIC MOUTHWASH PO PRN (17:55)
[2018-03-21] MEDS: SNACK - Diabetic Appropriate PO SCH (20:15)
[2018-03-22] MEDS: NS 1000 ML 1,000 ML IV SCH ×4 (01:32→17:55)
[2018-03-22] MEDS: NORCO 5/325 MG TAB PO PRN ×5 (02:30→22:45)
[2018-03-22] MEDS: MAGIC MOUTHWASH PO PRN ×2 (03:29→11:52)
[2018-03-22 05:06] LABS: BASOPHILS % (AUTO) 0.7 % (0.2-1.0); EOSINOPHILS # (AUTO) 0.1 x10^3/uL (0.0-0.2); HEMOGLOBIN 12.9 g/dL (13.5-18.0); LYMPHOCYTES # (AUTO) 0.5 X10^3/uL (1.3-2.9); LYMPHOCYTES % (AUTO) 7.7 % (21.0-51.0); MEAN CORPUSCULAR HEMOGLOBIN 32.9 pg (27.0-34.0); MEAN CORPUSCULAR HGB CONC 33.9 g/dL (33.0-35.0); MEAN CORPUSCULAR VOLUME 97.1 fL (80.0-100.0); MEAN PLATELET VOLUME 8.8 fL (7.4-11.0); MONOCYTES # (AUTO) 0.7 x10^3/uL (0.3-0.8); MONOCYTES % (AUTO) 9.4 % (0.0-13.0); NEUTROPHILS # (AUTO) 5.7 x10^3/uL (2.2-4.8); NEUTROPHILS % (AUTO) 80.2 % (42.0-75.0); PLATELET COUNT 109 X10^3/uL (150.0-450.0); RED BLOOD COUNT 3.91 X10^6/uL (4.7-6.0); RED CELL DISTRIBUTION WIDTH 12.2 % (11.6-16.5); WHITE BLOOD COUNT 7.1 X10^3/uL (3.6-10.0)
[2018-03-22 05:24] LABS: ALANINE AMINOTRANSFERASE 93 Units/L (12-78); ALBUMIN 2.6 g/dL (3.4-5.0); ALKALINE PHOSPHATASE 437 Units/L (46-116); ASPARTATE AMINO TRANSFERASE 86 Units/L (15-37); BLOOD UREA NITROGEN 15 mg/dL (7-18); CALCIUM 7.9 mg/dL (8.5-10.1); CARBON DIOXIDE 27.7 mmol/L (21-32); CHLORIDE 104 mmol/L (98-107); COR NA(FOR HYPERGLY) 141 mmol/L (136-145); CREATININE 1.02 mg/dL (0.70-1.30); SODIUM 139 mmol/L (136-145); TOTAL PROTEIN 5.7 g/dL (6.4-8.2); eGFR NON BLACK RACES > 60 (>60)
[2018-03-22] MEDS: CARAFATE PO SCH ×3 (05:51→16:53)
[2018-03-22] MEDS: MORPHINE SULFATE INJ 4 MG IVP PRN ×3 (05:52→19:56)
[2018-03-22] MEDS: ASPIRIN EC 81 MG PO SCH (08:01)
[2018-03-22] MEDS: COLACE CAP 100 MG PO SCH ×2 (08:01→21:07)
[2018-03-22] MEDS: WELLBUTRIN SR 150 MG (BID) PO SCH ×2 (08:02→21:07)
[2018-03-22] MEDS: XARELTO PO SCH (08:02)
[2018-03-22] MEDS: MYSOLINE PO SCH ×2 (08:02→21:06)
[2018-03-22] MEDS: HYZAAR 50/12.5 MG PO SCH (08:02)
[2018-03-22] MEDS: ZOLOFT PO SCH (08:02)
[2018-03-22] MEDS: PROTONIX TAB 40 MG PO SCH (08:02)
[2018-03-22] MEDS: SNACK - Diabetic Appropriate PO SCH (21:00)
[2018-03-23] MEDS: NS 1000 ML 1,000 ML IV SCH ×2 (00:26→05:50)
[2018-03-23] MEDS: MAGIC MOUTHWASH PO PRN (01:34)
[2018-03-23] MEDS: NORCO 5/325 MG TAB PO PRN (03:15)
[2018-03-23] MEDS: CARAFATE PO SCH (05:49)
[2018-03-23] MEDS: MORPHINE SULFATE INJ 4 MG IVP PRN ×2 (05:49)
[2018-03-23 05:54] LABS: BASOPHILS # (AUTO) 0.1 X10^3/uL (0.0-0.1); BASOPHILS % (AUTO) 0.9 % (0.2-1.0); EOSINOPHILS # (AUTO) 0.2 x10^3/uL (0.0-0.2); EOSINOPHILS % (AUTO) 3.4 % (0.9-2.9); HEMATOCRIT 38.4 % (42.0-54.0); HEMOGLOBIN 13.1 g/dL (13.5-18.0); LYMPHOCYTES # (AUTO) 0.8 X10^3/uL (1.3-2.9); LYMPHOCYTES % (AUTO) 11.8 % (21.0-51.0); MEAN CORPUSCULAR HEMOGLOBIN 32.8 pg (27.0-34.0); MEAN CORPUSCULAR VOLUME 96.5 fL (80.0-100.0); MEAN PLATELET VOLUME 8.5 fL (7.4-11.0); MONOCYTES # (AUTO) 0.7 x10^3/uL (0.3-0.8); MONOCYTES % (AUTO) 10.8 % (0.0-13.0); NEUTROPHILS # (AUTO) 4.9 x10^3/uL (2.2-4.8); NEUTROPHILS % (AUTO) 73.1 % (42.0-75.0); PLATELET COUNT 99 X10^3/uL (150.0-450.0); RED BLOOD COUNT 3.99 X10^6/uL (4.7-6.0); RED CELL DISTRIBUTION WIDTH 12.3 % (11.6-16.5); WHITE BLOOD COUNT 6.7 X10^3/uL (3.6-10.0)
[2018-03-23 06:21] LABS: ALANINE AMINOTRANSFERASE 102 Units/L (12-78); ALBUMIN 2.5 g/dL (3.4-5.0); ALKALINE PHOSPHATASE 462 Units/L (46-116); ASPARTATE AMINO TRANSFERASE 93 Units/L (15-37); BLOOD UREA NITROGEN 9 mg/dL (7-18); CALCIUM 7.8 mg/dL (8.5-10.1); CHLORIDE 104 mmol/L (98-107); COR NA(FOR HYPERGLY) 141 mmol/L (136-145); CREATININE 0.94 mg/dL (0.70-1.30); SODIUM 140 mmol/L (136-145); TOTAL PROTEIN 5.6 g/dL (6.4-8.2); eGFR NON BLACK RACES > 60 (>60)
[2018-03-23 08:38] VITALS: BP 176/78
[2018-03-23] MEDS ORDERED: MORPHINE SULFATE INJ 4 MG IVP PRN (08:54)
[2018-03-23] MEDS ORDERED: NORCO 10/325 TAB PO PRN (08:55)
[2018-03-23] MEDS ORDERED: VALIUM PO PRN (08:56)
[2018-03-23] MEDS: ASPIRIN EC 81 MG PO SCH (09:11)
[2018-03-23] MEDS: HYZAAR 50/12.5 MG PO SCH (09:11)
[2018-03-23] MEDS: COLACE CAP 100 MG PO SCH (09:11)
[2018-03-23] MEDS: PROTONIX TAB 40 MG PO SCH (09:12)
[2018-03-23] MEDS: MYSOLINE PO SCH (09:12)
[2018-03-23] MEDS: WELLBUTRIN SR 150 MG (BID) PO SCH (09:12)
[2018-03-23] MEDS: ZOLOFT PO SCH (09:12)
[2018-03-23] MEDS ORDERED: MORPHINE SULFATE INJ 2 MG INJ IVP PRN (11:25)
--- NOTE | 2018-04-12 10:14 | PCM.PROG ---
Progress Note - Progress Note for Day of Date of Exam: 03/21/18 - Subjective Subjective: WAS ADMITTED FOR INTRACTABLE EPIGASTRIC PAIN, CHEST PAIN, AND CONFUSION. TODAY, HE IS ALERT AND ORIENTED, LYING IN BED ON MORNING ROUNDS. HE CONTINUES WITH COMPLAINTS OF EPIGASTRIC PAIN. HE DENIES CURRENTLY HAVING ANY CHEST PAIN. FAMILY REPORTS THAT HE WAS CONFUSED AT TIMES THROUGHOUT THE NIGHT. ON EXAMINATION, HEART IS REGULAR IN RATE AND RHYTHM. BILATERAL LUNGS ARE NOTED WITH DIMINISHED LUNG SOUNDS THROUGHOUT. ABDOMEN IS ROUND AND NOTED WITH MODERATE EPIGASTRIC TENDERNESS ON PALPATION. NORMAL BOWEL SOUNDS NOTED ON ALL QUADRANTS. HIS VITALS TODAY ARE 98.5-67-20-93%-165/78. LABS WERE OBTAINED. ABNORMAL LAB VALUES INCLUDE THE FOLLOWING: RBC 3.95, HGB 13.2, HCT 38.8, PLT COUNT 111, GLUCOSE 162, CALCIUM 8.1, TOTAL BILI 1.50, AST 76, ALT 89, ALK PHOS 425, TOTAL PROTEIN 5.7, ALBUMIN 2.7, AMYLASE 19, LIPASE 47. AN ABDOMEN MRI WAS OBTAINED AND REVEALED A 2CM CYSTIC MASS ALONG THE JUNCTION OF THE HEAD AND BODY OF THE PANCREAS. THIS IS SUSPICIOUS FOR A PSEUDOCYST OR POSSIBLE CYSTADENOMA. BRAIN MRI REVEALED: SMALL FOCUS OF ENHANCEMENT WITHIN THE LEFT OCCIPITAL LOBE, CONCERN ING FOR POSSIBLE METASTATIC DISEASE. TODAY, WE WILL CONSULT GASTROENTEROLOGY. OTHERWISE, WE WILL FOLLOW UP WITH AM LABS AND CONTINUE TO MONITOR PATIENT. - Past Medical Family Social History Past Med/Fam/Surg Hx: No changes since H&P Allergies: Allergies No Known Drug Allergies Allergy (Verified 01/10/18 01:49) - Review of Systems ROS: No change since H&P - Vital Signs and I&O's Vital Signs: Temperature 97.9 F Pulse Rate [Apical] 79 Pulse Rate 113 Respiratory Rate 20 Blood Pressure [Left Arm] 176/78 Blood Pressure [Right Arm] 152/75 Blood Pressure 122/60 O2 Sat by Pulse Oximetry 98 - Physical Exam Oriented: Normal, Time, Person, Place Eyes: Normal Ear: Normal Nose: Normal Throat: Normal Respiratory: Generalized, Diminished Cardiovascular: Normal : Normal Auscultation: Bowel Sounds: Normal Palpation: Normal Tenderness: Epigastric Skin: Normal Musculoskeletal: Normal Psychiatric: Normal Mood Description: Calm Affect: Normal Speech Pattern: Clear, Appropriate - Laboratory and Diagnostics Result Diagrams: 03/23/18 05:37 03/23/18 05:37 Labs: Laboratory WBC 6.7 X10^3/uL (3.6-10.0) 03/23/18 05:37 RBC 3.99 X10^6/uL (4.7-6.0) L 03/23/18 05:37 Hgb 13.1 g/dL (13.5-18.0) L 03/23/18 05:37 Hct 38.4 % (42.0-54.0) L 03/23/18 05:37 MCV 96.5 fL (80.0-100.0) 03/23/18 05:37 MCH 32.8 pg (27.0-34.0) 03/23/18 05:37 MCHC 34.0 g/dL (33.0-35.0) 03/23/18 05:37 RDW 12.3 % (11.6-16.5) 03/23/18 05:37 Plt Count 99 X10^3/uL (150.0-450.0) L 03/23/18 05:37 MPV 8.5 fL (7.4-11.0) 03/23/18 05:37 Neut % (Auto) 73.1 % (42.0-75.0) 03/23/18 05:37 Lymph % (Auto) 11.8 % (21.0-51.0) L 03/23/18 05:37 [place] % (Auto) 10.8 % (0.0-13.0) 03/23/18 05:37 Eos % (Auto) 3.4 % (0.9-2.9) H 03/23/18 05:37 Baso % (Auto) 0.9 % (0.2-1.0) 03/23/18 05:37 Neut # (Auto) 4.9 x10^3/uL (2.2-4.8) H 03/23/18 05:37 Lymph # (Auto) 0.8 X10^3/uL (1.3-2.9) L 03/23/18 05:37 [place] # (Auto) 0.7 x10^3/uL (0.3-0.8) 03/23/18 05:37 Eos # (Auto) 0.2 x10^3/uL (0.0-0.2) 03/23/18 05:37 Baso # (Auto) 0.1 X10^3/uL (0.0-0.1) 03/23/18 05:37 Absolute Nucleated RBC 0.0 /100WBC 03/23/18 05:37 INR Target Range - 03/19/18 12:58 INR 1.25 (0.8-1.3) 03/19/18 12:58 D-Dimer 3280 ng/mL (0-400) H* 03/19/18 12:58 Sodium 140 mmol/L (136-145) 03/23/18 05:37 Corrected Sodium 141 mmol/L (136-145) 03/23/18 05:37 Potassium 3.9 mmol/L (3.5-5.1) 03/23/18 05:37 Chloride 104 mmol/L (98-107) 03/23/18 05:37 Carbon Dioxide 28.0 mmol/L (21-32) 03/23/18 05:37 BUN 9 mg/dL (7-18) 03/23/18 05:37 Creatinine 0.94 mg/dL (0.70-1.30) 03/23/18 05:37 Est GFR (MDRD) Af Amer > 60 (>60) 03/23/18 05:37 Est GFR (MDRD) Non-Af > 60 (>60) 03/23/18 05:37 Glucose 158 mg/dL (65-99) H 03/23/18 05:37 POC Glucose (mg/dL) 145 mg/dL (65-99) H 03/23/18 05:17 Calcium 7.8 mg/dL (8.5-10.1) L 03/23/18 05:37 Corrected Calcium 9.0 mg/dL (8.5-10.1) 03/23/18 05:37 Magnesium 1.8 mg/dL (1.7-2.9) 03/19/18 12:58 Total Bilirubin 1.40 mg/dL (0.2-1.0) H 03/23/18 05:37 AST 93 Units/L (15-37) H 03/23/18 05:37 ALT 102 Units/L (12-78) H 03/23/18 05:37 Alkaline Phosphatase 462 Units/L (46-116) H 03/23/18 05:37 Ammonia 26 umol/L (11-32) 03/20/18 00:33 Creatine Kinase 74 Units/L (39-308) 03/20/18 00:33 CK-MB (CK-2) < 1.0 ng/mL (0-4.0) 03/20/18 00:33 CK/CKMB % Calc 1.4 % (<4) 03/20/18 00:33 Troponin I 0.07 ng/mL (0-1.5) 03/20/18 00:33 Total Protein 5.6 g/dL (6.4-8.2) L 03/23/18 05:37 Albumin 2.5 g/dL (3.4-5.0) L 03/23/18 05:37 Globulin 3.1 g/dL (2.5-4.5) 03/23/18 05:37 Albumin/Globulin Ratio 0.8 Ratio (1.1-2.1) L 03/23/18 05:37 Amylase 19 Units/L (25-115) L 03/21/18 04:03 Lipase 47 Units/L (73-393) L 03/21/18 04:03 Alpha Fetoprotein 3 ng/mL (0-9) 03/20/18 04:00 Carcinoembryonic Ag 567.5 ng/mL (0.0-3.0) H 03/20/18 04:00 [place] 19-9 Antigen 84 U/mL (0-37) H 03/20/18 04:00 Specimen Type Clean catch urine 03/20/18 03:10 Urine Color Krystle (YELLOW) 03/20/18 03:10 Urine Appearance Clear (CLEAR) 03/20/18 03:10 Urine pH 5.0 (5.0 - 8.0) 03/20/18 03:10 Ur Specific [place] 1.015 (1.000-1.030) 03/20/18 03:10 Urine Protein 3+ (NEGATIVE) 03/20/18 03:10 Urine Glucose (UA) Negative (NEGATIVE) 03/20/18 03:10 Urine Ketones 2+ (NEGATIVE) 03/20/18 03:10 Urine Occult Blood 3+ (NEGATIVE) 03/20/18 03:10 Urine Nitrite Negative (NEGATIVE) 03/20/18 03:10 Urine Bilirubin Negative (NEGATIVE) 03/20/18 03:10 Urine Urobilinogen 2+ (NORMAL) 03/20/18 03:10 Ur Leukocyte Esterase 1+ (NEGATIVE) 03/20/18 03:10 Urine RBC 5-10 /HPF (NONE SEEN) 03/20/18 03:10 Urine WBC 0-2 /HPF (NONE SEEN) 03/20/18 03:10 Ur Squamous Epith Cells Rare /HPF (NEGATIVE) 03/20/18 03:10 Urine Bacteria Trace /HPF (NEGATIVE) 03/20/18 03:10 Ur Culture Indicated? No/not indicated 03/20/18 03:10 - Plan (1) Chest pain, rule out acute myocardial infarction Status: Acute Plan: SERIAL CARDIAC ENZYMES AND EKGS, TELEMETRY, SUPPLEMENTAL OXYGEN, CONTINUE TO MONITOR (2) Epigastric abdominal pain Status: Acute Plan: ABDOMEN MRI IN AM, CONTINUE TO MONITOR (3) Altered mental status Status: Acute Qualifiers: Altered mental status type: persistent vegetative state Qualified Code(s): R40.3 - Persistent vegetative state Plan: OBTAIN BRAIN MRI, CONTINUE TO MONITOR
--- NOTE | 2018-04-12 10:17 | PCM.PROG ---
Progress Note - Progress Note for Day of Date of Exam: 03/22/18 - Subjective Subjective: WAS ADMITTED FOR INTRACTABLE EPIGASTRIC PAIN, CHEST PAIN, AND CONFUSION. TODAY, HE IS ALERT AND ORIENTED, LYING IN BED ON MORNING ROUNDS. HE CONTINUES WITH COMPLAINTS OF EPIGASTRIC PAIN. ABDOMEN MRI REVEALED A PANCREATIC HEAD MASS WITH POSSIBLE METASTATIC DISEASE. ON EXAMINATION, HEART IS REGULAR IN RATE AND RHYTHM. BILATERAL LUNGS ARE NOTED WITH DIMINISHED LUNG SOUNDS THROUGHOUT. ABDOMEN IS ROUND AND NOTED WITH MODERATE EPIGASTRIC TENDERNESS ON PALPATION. NORMAL BOWEL SOUNDS NOTED ON ALL QUADRANTS. HIS VITALS TODAY ARE 98.4-70-20-95%-173/77. LABS WERE OBTAINED. SEE EMR FOR ABNORMAL VALUES. GASTROENTEROLOGY CONSULTED WITH PATIENT YESTERDAY AND PLAN FOR TRANSFER TO [facility] WE ARE AWAITING A BED TODAY. OTHERWISE, WE WILL CONTINUE TO MONITOR PATIENT. - Past Medical Family Social History Past Med/Fam/Surg Hx: No changes since H&P Allergies: Allergies No Known Drug Allergies Allergy (Verified 01/10/18 01:49) - Review of Systems ROS: No change since H&P - Vital Signs and I&O's Vital Signs: Temperature 97.9 F Pulse Rate [Apical] 79 Pulse Rate 113 Respiratory Rate 20 Blood Pressure [Left Arm] 176/78 Blood Pressure [Right Arm] 152/75 Blood Pressure 122/60 O2 Sat by Pulse Oximetry 98 - Physical Exam Oriented: Normal, Time, Person, Place Eyes: Normal Ear: Normal Nose: Normal Throat: Normal Respiratory: Generalized, Diminished Cardiovascular: Normal : Normal Auscultation: Bowel Sounds: Normal Tenderness: Epigastric Skin: Normal Musculoskeletal: Normal Psychiatric: Normal Mood Description: Calm Affect: Normal Speech Pattern: Clear, Appropriate - Laboratory and Diagnostics Result Diagrams: 03/23/18 05:37 03/23/18 05:37 Labs: Laboratory WBC 6.7 X10^3/uL (3.6-10.0) 03/23/18 05:37 RBC 3.99 X10^6/uL (4.7-6.0) L 03/23/18 05:37 Hgb 13.1 g/dL (13.5-18.0) L 03/23/18 05:37 Hct 38.4 % (42.0-54.0) L 03/23/18 05:37 MCV 96.5 fL (80.0-100.0) 03/23/18 05:37 MCH 32.8 pg (27.0-34.0) 03/23/18 05:37 MCHC 34.0 g/dL (33.0-35.0) 03/23/18 05:37 RDW 12.3 % (11.6-16.5) 03/23/18 05:37 Plt Count 99 X10^3/uL (150.0-450.0) L 03/23/18 05:37 MPV 8.5 fL (7.4-11.0) 03/23/18 05:37 Neut % (Auto) 73.1 % (42.0-75.0) 03/23/18 05:37 Lymph % (Auto) 11.8 % (21.0-51.0) L 03/23/18 05:37 [place] % (Auto) 10.8 % (0.0-13.0) 03/23/18 05:37 Eos % (Auto) 3.4 % (0.9-2.9) H 03/23/18 05:37 Baso % (Auto) 0.9 % (0.2-1.0) 03/23/18 05:37 Neut # (Auto) 4.9 x10^3/uL (2.2-4.8) H 03/23/18 05:37 Lymph # (Auto) 0.8 X10^3/uL (1.3-2.9) L 03/23/18 05:37 [place] # (Auto) 0.7 x10^3/uL (0.3-0.8) 03/23/18 05:37 Eos # (Auto) 0.2 x10^3/uL (0.0-0.2) 03/23/18 05:37 Baso # (Auto) 0.1 X10^3/uL (0.0-0.1) 03/23/18 05:37 Absolute Nucleated RBC 0.0 /100WBC 03/23/18 05:37 INR Target Range - 03/19/18 12:58 INR 1.25 (0.8-1.3) 03/19/18 12:58 D-Dimer 3280 ng/mL (0-400) H* 03/19/18 12:58 Sodium 140 mmol/L (136-145) 03/23/18 05:37 Corrected Sodium 141 mmol/L (136-145) 03/23/18 05:37 Potassium 3.9 mmol/L (3.5-5.1) 03/23/18 05:37 Chloride 104 mmol/L (98-107) 03/23/18 05:37 Carbon Dioxide 28.0 mmol/L (21-32) 03/23/18 05:37 BUN 9 mg/dL (7-18) 03/23/18 05:37 Creatinine 0.94 mg/dL (0.70-1.30) 03/23/18 05:37 Est GFR (MDRD) Af Amer > 60 (>60) 03/23/18 05:37 Est GFR (MDRD) Non-Af > 60 (>60) 03/23/18 05:37 Glucose 158 mg/dL (65-99) H 03/23/18 05:37 POC Glucose (mg/dL) 145 mg/dL (65-99) H 03/23/18 05:17 Calcium 7.8 mg/dL (8.5-10.1) L 03/23/18 05:37 Corrected Calcium 9.0 mg/dL (8.5-10.1) 03/23/18 05:37 Magnesium 1.8 mg/dL (1.7-2.9) 03/19/18 12:58 Total Bilirubin 1.40 mg/dL (0.2-1.0) H 03/23/18 05:37 AST 93 Units/L (15-37) H 03/23/18 05:37 ALT 102 Units/L (12-78) H 03/23/18 05:37 Alkaline Phosphatase 462 Units/L (46-116) H 03/23/18 05:37 Ammonia 26 umol/L (11-32) 03/20/18 00:33 Creatine Kinase 74 Units/L (39-308) 03/20/18 00:33 CK-MB (CK-2) < 1.0 ng/mL (0-4.0) 03/20/18 00:33 CK/CKMB % Calc 1.4 % (<4) 03/20/18 00:33 Troponin I 0.07 ng/mL (0-1.5) 03/20/18 00:33 Total Protein 5.6 g/dL (6.4-8.2) L 03/23/18 05:37 Albumin 2.5 g/dL (3.4-5.0) L 03/23/18 05:37 Globulin 3.1 g/dL (2.5-4.5) 03/23/18 05:37 Albumin/Globulin Ratio 0.8 Ratio (1.1-2.1) L 03/23/18 05:37 Amylase 19 Units/L (25-115) L 03/21/18 04:03 Lipase 47 Units/L (73-393) L 03/21/18 04:03 Alpha Fetoprotein 3 ng/mL (0-9) 03/20/18 04:00 Carcinoembryonic Ag 567.5 ng/mL (0.0-3.0) H 03/20/18 04:00 CA 19-9 Antigen 84 U/mL (0-37) H 03/20/18 04:00 Specimen Type Clean catch urine 03/20/18 03:10 Urine Color Krystle (YELLOW) 03/20/18 03:10 Urine Appearance Clear (CLEAR) 03/20/18 03:10 Urine pH 5.0 (5.0 - 8.0) 03/20/18 03:10 Ur Specific [place] 1.015 (1.000-1.030) 03/20/18 03:10 Urine Protein 3+ (NEGATIVE) 03/20/18 03:10 Urine Glucose (UA) Negative (NEGATIVE) 03/20/18 03:10 Urine Ketones 2+ (NEGATIVE) 03/20/18 03:10 Urine Occult Blood 3+ (NEGATIVE) 03/20/18 03:10 Urine Nitrite Negative (NEGATIVE) 03/20/18 03:10 Urine Bilirubin Negative (NEGATIVE) 03/20/18 03:10 Urine Urobilinogen 2+ (NORMAL) 03/20/18 03:10 Ur Leukocyte Esterase 1+ (NEGATIVE) 03/20/18 03:10 Urine RBC 5-10 /HPF (NONE SEEN) 03/20/18 03:10 Urine WBC 0-2 /HPF (NONE SEEN) 03/20/18 03:10 Ur Squamous Epith Cells Rare /HPF (NEGATIVE) 03/20/18 03:10 Urine Bacteria Trace /HPF (NEGATIVE) 03/20/18 03:10 Ur Culture Indicated? No/not indicated 03/20/18 03:10 - Plan (1) Chest pain, rule out acute myocardial infarction Status: Acute Plan: SERIAL CARDIAC ENZYMES AND EKGS, TELEMETRY, SUPPLEMENTAL OXYGEN, CONTINUE TO MONITOR (2) Epigastric abdominal pain Status: Acute Plan: ABDOMEN MRI IN AM, CONTINUE TO MONITOR (3) Altered mental status Status: Acute Qualifiers: Altered mental status type: persistent vegetative state Qualified Code(s): R40.3 - Persistent vegetative state Plan: OBTAIN BRAIN MRI, CONTINUE TO MONITOR
--- NOTE | 2018-05-01 23:10 | DR.CARTERD ---
- Discharge Summary for: Discharge Summary for Date of:: 03/23/18 - Admission Date Date of Admission: 03/19/18 - Admission Diagnoses Admission Diagnosis: (1) Chest pain, rule out acute myocardial infarction (2) Epigastric abdominal pain - Discharge Date Discharge Date: 03/23/18 - Discharge Diagnoses Discharge Diagnosis: (1) Chest pain, rule out acute myocardial infarction (2) Epigastric abdominal pain (3) Altered mental status - Hospital Course Hospital Course: DAY ONE, IS A 82 YEAR OLD PATIENT OF OURS WHO PRESENTED TO THE ER WITH REPORTS OF CHEST PAIN, SHORTNESS OF BREATH, AND EPIGASTRIC PAIN. HIS FAMILY REPORTED THAT HE HAS BEEN CONFUSED AT TIMES AND NOT EATING WELL. HE WAS SEEN IN THE OFFICE ON TUESDAY AND GIVEN PERCOCET FOR PAIN. HE STATED THAT PAIN IS PERSISTENT DESPITE TAKING PERCOCET PRESCRIBED. ON ARRIVAL, VITALS WERE 97.1-113-20-91%-112/60. LABS WERE OBTAINED. ABNORMAL LAB VALUES INCLUDE THE FOLLOWING: RBC 4.39, PLT COUNT 139, D-DIMER 3280, BUN 22, CREATININE 1.39, GLUCOSE 203, TOTAL BILIRUBIN 1.80, AST 82, ALT 113, ALK PHOS 492, ALBUMIN 3.3. CARDIAC ENZYMES WITHIN NORMAL LIMITS. URINALYSIS REVEALED: WBC 0-2, RBC 5-10, LEUKOCYTES 1+, BACTERIA TRACE. EKG REVEALED: SINUS RHYTHM WITH HR 96. A CHEST XRAY WAS OBTAINED AND REVEALED: NO SIGNIFICANT INTERVAL CHANGE OR ACUTE FINDINGS. A CHEST CT WITH CONTRAST WAS OBTAINED AND REVEALED: TOO NUMEROUS TO COUNT BILATERAL PULMONARY NODULES CONCERNING FOR METASTATIC DISEASE; 2.7 CM PANCREATIC HEAD MASS ASSOCIATED PANCREATIC DUCTAL DILATION, PANCREATINC ATROPHY, AND ABNORMAL APPEARING SURROUNDING LYMPH NODES. THIS IS CONCERNING FOR METASTATIC DISEASE. HE WAS ADMITTED FOR FURTHER EVALUATION AND TREATMENT OF INTRACTABLE ABDOMINAL PAIN. WE PLAN STEF TO OBTAIN AN ABDOMEN MRI IN THE MORNING. HE WAS STARTED ON NORMAL SALINE AT 80ML/HR. OTHERWISE, WE FOLLOWED UP WITH AM LABS AND CONTINUED TO MONITOR. DAY TWO, HE WAS ALERT AND ORIENTED, LYING IN BED ON MORNING ROUNDS. HE CONTINUED WITH COMPLAINTS OF EPIGASTRIC PAIN. HE DENIED CURRENTLY HAVING ANY CHEST PAIN. FAMILY REPORTED THAT HE WAS CONFUSED AT TIMES THROUGHOUT THE NIGHT. ON EXAMINATION, HEART WAS REGULAR IN RATE AND RHYTHM. BILATERAL LUNGS WERE NOTED WITH DIMINISHED LUNG SOUNDS THROUGHOUT. ABDOMEN WAS ROUND AND NOTED WITH MODERATE EPIGASTRIC TENDERNESS ON PALPATION. NORMAL BOWEL SOUNDS NOTED IN ALL QUADRANTS. HIS VITALS TODAY WERE 98.9-76-20-93%NC-174/79. LABS WERE OBTAINED. ABNORMAL LAB VALUES INCLUDED THE FOLLOWING: RBC 4.00, HGB 13.4, HCT 39.0, PLT COUNT 126, BUN 20, GLUCOSE 195, CALCIUM 8.1, TOTAL BILI 1.60, AST 79, ALT 101, ALK PHOS 437, TOTAL PROTEIN 6.1, ALBUMIN 2.8. HE IS SCHEDULED FOR AN ABDOMEN MRI TODAY. WE OBTAINED A BRAIN MRI. WE FOLLOWED UP WITH AM LABS AND CONTINUED TO MONITOR PATIENT. DAY THREE, HE WAS ALERT AND ORIENTED, LYING IN BED ON MORNING ROUNDS. HE CONTINUED WITH COMPLAINTS OF EPIGASTRIC PAIN. HE DENIED HAVING ANY CHEST PAIN. FAMILY REPORTED THAT HE WAS CONFUSED AT TIMES THROUGHOUT THE NIGHT. ON EXAMINATION, HEART WAS REGULAR IN RATE AND RHYTHM. BILATERAL LUNGS WERE NOTED WITH DIMINISHED LUNG SOUNDS THROUGHOUT. ABDOMEN WAS ROUND AND NOTED WITH MODERATE EPIGASTRIC TENDERNESS ON PALPATION. NORMAL BOWEL SOUNDS NOTED IN ALL QUADRANTS. HIS VITALS TODAY WERE 98.5-67-20-93%-165/78. LABS WERE OBTAINED. ABNORMAL LAB VALUES INCLUDED THE FOLLOWING: RBC 3.95, HGB 13.2, HCT 38.8, PLT COUNT 111, GLUCOSE 162, CALCIUM 8.1, TOTAL BILI 1.50, AST 76, ALT 89, ALK PHOS 425, TOTAL PROTEIN 5.7, ALBUMIN 2.7, AMYLASE 19, LIPASE 47. AN ABDOMEN MRI WAS OBTAINED AND REVEALED A 2CM CYSTIC MASS ALONG THE JUNCTION OF THE HEAD AND BODY OF THE PANCREAS. THIS IS SUSPICIOUS FOR A PSEUDOCYST OR POSSIBLE CYSTADENOMA. BRAIN MRI REVEALED: SMALL FOCUS OF ENHANCEMENT WITHIN THE LEFT OCCIPITAL LOBE, CONCERNING FOR POSSIBLE METASTATIC DISEASE. TODAY, WE CONSULTED GASTROENTEROLOGY. WE FOLLOWED UP WITH AM LABS AND CONTINUED TO MONITOR PATIENT. DAY FOUR, HE WAS ALERT AND ORIENTED, LYING IN BED ON MORNING ROUNDS. HE CONTINUED WITH COMPLAINTS OF EPIGASTRIC PAIN. ABDOMEN MRI REVEALED A PANCREATIC HEAD MASS WITH POSSIBLE METASTATIC DISEASE. ON EXAMINATION, HEART WAS REGULAR IN RATE AND RHYTHM. BILATERAL LUNGS WERE NOTED WITH DIMINISHED LUNG SOUNDS THROUGHOUT. ABDOMEN WAS ROUND AND NOTED WITH MODERATE EPIGASTRIC TENDERNESS ON PALPATION. NORMAL BOWEL SOUNDS NOTED IN ALL QUADRANTS. HIS VITALS TODAY WERE 98.4-70-20-95%-173/77. LABS WERE OBTAINED. GASTROENTEROLOGY CONSULTED WITH PATIENT YESTERDAY AND PLANNED FOR TRANSFER TO [facility]. WE ARE AWAITING A BED TODAY. WE CONTINUED TO MONITOR PATIENT. DAY FIVE, PATIENT CONTINUED WITH EPIGASTRIC TENDERNESS THIS MORNING ON ROUNDS. WE CONTINUED TO WAIT FOR BED ASSIGNMENT FOR TRANSFER. A BED CAME AVAILABLE AND WE AGREED TO TRANSFER PATIENT TO A [facility] FOR FURTHER EVALUATION AND TREATMENT. PATIENT AND FAMILY VOICED UNDERSTANDING AND WAS IN AGREEMENT WITH TRANSFER. - Discharge Medications Discharge Medications: Home Medication List alum-mag hydroxide-simeth [Maalox Maximum Strength] 7.5 ml PO TID PRN 03/19/18 [History] aspirin [Aspirin Low Dose] 81 mg PO DAILY 03/19/18 [History] bupropion HCl 75 mg PO BID 03/19/18 [History] docusate sodium [Colace] 100 mg PO BID 03/19/18 [History] insulin glargine [Lantus Solostar U-100 Insulin] 15 unit SUBCUT HS 03/19/18 [History] insulin lispro [Humalog KwikPen Insulin] 8 unit SUBCUT AC 03/19/18 [History] lidocaine HCl [Lidocaine Viscous] 7.5 ml PO TID PRN 03/19/18 [History] losartan-hydrochlorothiazide 1 tab PO DAILY 03/19/18 [History] omeprazole 40 mg PO DAILY 03/19/18 [History] ondansetron 4 mg TRANSLINGUAL Q4H PRN 03/19/18 [History] pantoprazole 40 mg PO DAILY 03/19/18 [History] primidone 25 mg PO BID 03/19/18 [History] rivaroxaban [Xarelto] 10 mg PO DAILY 03/19/18 [History] sertraline 25 mg PO DAILY 03/19/18 [History] sucralfate 1 g PO AC 03/19/18 [History] tramadol 200 mg PO DAILY 03/19/18 [History] Prescriptions: - Discharge Disposition Discharge Disposition: PATIENT WAS TRANSFERRED TO A [facility] FOR FURTHER EVALUATION AND TREATMENT.
== END 2018-03-23 11:30 | disposition short-term general hospital (02) | DRG 947 ==
LOC: ER 12:24 → MED/SURG 12:24
PROVIDERS: ADMIT Internal Medicine; ATTEND Internal Medicine
DX: R06.02 Shortness of breath; E11.65 Type 2 diabetes mellitus with hyperglycemia; E78.2 Mixed hyperlipidemia; R94.5 Abnormal results of liver function studies; R10.31 Right lower quadrant pain; G89.3 Neoplasm related pain (acute) (chronic); I10 Essential (primary) hypertension; K68.9 Other disorders of retroperitoneum; C78.7 Secondary malignant neoplasm of liver and intrahepatic bile duct; K76.89 Other specified diseases of liver; R94.31 Abnormal electrocardiogram [ECG] [EKG]; Z79.899 Other long term (current) drug therapy; R91.8 Other nonspecific abnormal finding of lung field; Z79.01 Long term (current) use of anticoagulants
CPT/HCPCS: 36415; 70450; 70553; 71010; 71045; 71275; 74183; 80053; 81001; 82105; 82140; 82150; 82378; 82550; 82553; 83690; 83735; 84484; 85025; 85378; 85610; 86301; 86316; 93005; 94760; 96365; 96367; 96374; 96375; 99284; A4216; A4222; S0106; G0378; J1815; J2270; J2405; J7030; J7050